=== PATIENT | female | born 1955 | race Caucasian/White ===

== ENCOUNTER 2021-07-16 09:25 | Emergency (ER) | payer OTHER, SELFPAY ==
--- NOTE | ~2021-07-16 | XR_ITS ---
EXAMINATION: RIGHT HAND. CLINICAL INFORMATION: Fall. COMPARISON: None TECHNIQUE: 4 views. FINDINGS: There is transverse distal radial comminuted fracture with volar angulation and moderate wrist soft tissue swelling. There is a nondisplaced fracture distal ulna There is no fracture involving the carpal bones. Mild loss of PIP and DIP joints space all digits is noted from degenerative arthritis. There is no acute fracture or dislocation of the right hand. XR/XR hand wrist RT IMPRESSION: Distal radial comminuted fracture without displacement but mild volar angulation and moderate soft tissue swelling of the wrist. Nondisplaced fracture distal ulna. No other fracture seen. Degenerative arthritic changes PIP and DIP joints.
[2021-07-16 10:09] VITALS: BP 152/76; PULSE 77; RESP 18; TEMP 36.8; O2SAT 96; BMI 27.4
--- NOTE | 2021-07-16 13:21 | ED_ITS ---
HPI - Fall General Chief Complaint: Fall Stated Complaint: fall on ice broken wrist Time Seen by Provider: 07/16/21 13:21 Source: patient Mode of arrival: ambulatory Limitations: no limitations History of Present Illness HPI Narrative: This is very pleasant 66 years old female presented to the emergency room after a fall in the ice she is complaining of left wrist pain no other injury denies any neck pain headache chest wall pain complaint: fall Onset (ago): day(s) (1) Fall from: standing Place fall occurred: street Loss of consciousness: none Symptoms prior to fall: none Context: tripped/slipped Quality: dull Related Data Allergies Allergy/AdvReac Type Severity Reaction Status Date / Time No Known Allergies Allergy Verified 07/16/21 10:07 Review of Systems Review of Systems: Yes all other systems are reviewed and are negative ENT: Reports system reviewed and no additional complaints, except as documented and Denies neck pain Cardiovascular: Cardiovascular: Reports no additional cardiovascular complaints Musculoskeletal: Musculoskeletal: Denies muscle weakness, Denies neck pain, Denies numbness and Denies tingling Neurologic: Denies numbness and Denies tingling PMFSH Past Medical History PMFSH Narrative: denies Social History Social History Advance Directives: No Advance Directives Information Provided: No Physical Exam Vital Signs: Vital Signs: Last Vital Signs Temp 98.3 F 07/16/21 10:09 Pulse 77 07/16/21 10:09 Resp 18 07/16/21 10:09 BP 152/76 H 07/16/21 10:09 Pulse Ox 96 07/16/21 10:09 BMI result Body Mass Index 27.4 Const: General: cooperative Limitations: no limitations HENMT: Head: Yes normal to inspection Face and sinus: Yes normal facial exam Mouth: Normal oral and palatal mucosa present Neck: Neck: Yes normal visual inspection and Yes full ROM Thyroid: Thyroid normal Chest: Chest palpation & inspection: normal inspection of the chest Resp: Effort & Inspection: normal respiratory effort Auscultation: clear to auscultation bilaterally Cardio: Jugular venous distension: no JVD Rate: regular rate Rhythm: regular rhythm GI: Inspection: Yes normal to inspection Palpation (GI): Soft to palpation, not firm, nontender and no guarding Skin: General skin exam: no rashes or lesions noted Extrem: Other: tenderness swelling left wrist Left upper extremity: wrist (swelling/tenderness) Course Course Course Narrative: Case was discussed with orthopedic surgeon Dr. Bernstein, will place OCL splint he will see the patient in the office for follow-up Procedures Orthopedic Splinting/Casting Splint rt wrist/forearm: Side: right Upper Extremity Injury Location: wrist Upper Extremity Immobilizer: volar splint Additional Comments: OCL splint applied circulation OK after splint MDM - Fall Imaging Data rt wrisyt: Radiologist's impression: None? TECHNIQUE: 4 views.? FINDINGS: There is transverse distal radial comminuted fracture with volar angulation and moderate wrist soft tissue swelling. There is a nondisplaced fracture distal ulna There is no fracture involving the carpal bones. Mild loss of PIP and DIP joints space all digits is noted from degenerative arthritis. There is no acute fracture or dislocation of the right hand.? XR/XR hand wrist RT IMPRESSION: Distal radial comminuted fracture without displacement but mild volar angulation and moderate soft tissue swelling of the wrist. Nondisplaced fracture distal ulna. ? No other fracture seen. ? Degenerative arthritic changes PIP and DIP joints. Dictated By: Gurvinder Chi MD Signed By: <Electronically signed by Gurvinder Chi MD in OV> 07/16/21 1019 Discharge Plan Discharge Clinical Impression: Fracture of wrist Patient Disposition: Home, Self-Care Instructions: Wrist Fracture in Adults (ED) Additional Instructions: Please follow-up with the orthopedist surgeon Dr Bernstein for definitive janessa tment, Call his office today make a follow-up appointment Referrals: Tuan Bernstein MD [Physician] - 2 days Interventions: ED Discharge Assessment Last Done: 07/16/21 13:59 Discharge Date/Time: 07/16/21 14:00
== END 2021-07-16 14:00 | disposition home or self-care (01) ==
PROVIDERS: Emergency Provider Emergency Medicine
DX: S52.501A Unspecified fracture of the lower end of right radius, initial encounter for closed fracture (principal); S52.601A Unspecified fracture of lower end of right ulna, initial encounter for closed fracture; W00.0XXA Fall on same level due to ice and snow, initial encounter; Y93.9 Activity, unspecified; Y92.410 Unspecified street and highway as the place of occurrence of the external cause; Y99.9 Unspecified external cause status
CPT/HCPCS: 29125; 73110; 73130; 99282; 99284

== ENCOUNTER → 2021-07-17 12:08 | Outpatient (BNVA) | payer OTHER, SELFPAY | PROVIDERS: Visit Provider Physician Assistant ==

== ENCOUNTER 2021-07-21 11:03 | Day surgery (SDC) | payer OTHER, SELFPAY ==
[2021-07-21] VITALS (10 sets, daily range): BP systolic 116–154; BP diastolic 46–76; PULSE 74–89; RESP 14–20; TEMP 36.9–37.4; O2SAT 93–98; BMI 26.6
--- NOTE | ~2021-07-21 | FL_ITS ---
EXAMINATION: XR FLUOROSCOPY WITH IMAGES CLINICAL INFORMATION: Fracture distal radius COMPARISON: Radiographs right hand and wrist 07/16/2021 TECHNIQUE: Fluoroscopy performed by Dr. Deisy Washington. Fluoroscopy time: 37 seconds DAP: [id number] [id number] Images: 2 FINDINGS: Distal radial fracture is reduced with volar side plate and screws. Hardware intact. Fracture fragments are in near-anatomic alignment. Ulnar variance is neutral. No dislocation. FL/FL guidance in OR IMPRESSION: Status post reduction distal radial fracture. Hardware intact.
--- NOTE | 2021-07-21 11:14 | W.PM.OPN ---
Operative Note Operative Note Date of Service: 07/21/21 Narrative: Operative Note Narrative: Preop diagnosis: 1. Right Distal radius fracture Postop diagnosis: Same Procedure: 1. Right Distal radius fracture open reduction internal fixation. extra-articular Surgeon: Deisy Washington MD Anesthesia: Mac plus regional block Findings: distal radius fracture Implants: A 3 hole Accu Med volar locking plate, with 4x 2.3 mm locking pegs/screws, and 3 3.5 mm cortical screws Tourniquet time: 51 minutes EBL: 5.0 ml Specimen: None Drains: None Complications: None Disposition: Brought to the recovery room in stable condition Plan: Follow-up in 10-14 days for wound check, suture removal and postop radiographs The patient will be placed in a volar wrist splint. Encouraged no lifting of anything heavier than a cell phone. Please encourage active and passive range of motion of the digits. Follow-up at 4-5 weeks postop for repeat radiographs. Indications: The patient is a 66 year old woman with right distal radius fracture . The risks and benefits of operative treatment, including but not limited to risk of damage to blood vessels, nerves, tendons, infection, recurrence, persistent pain or numbness, incomplete resolution of preoperative symptoms, or need for further surgery were discussed with the patient and they wished to proceed with surgery. Procedure: Once consent was obtained patient was brought back to the operating suite and placed in the operating table in a supine position. A regional block was performed by the anesthesia team. Perioperative antibiotics and anesthesia was administered by the anesthesia team. A tourniquet was applied to the proximal aspect of the right upper extremity and the limb was prepped and draped in a standard surgical fashion. The limb was elevated exsanguinated with Esmarch bandage and the tourniquet inflated to 250 mm of mercury for a total tourniquet time of 51 minutes. The FluoroScan was used throughout the case to assess our reduction, and facilitate implant placement. A gentle closed reduction was 1st performed on the patient's right distal radius fracture. Was assessed radiographically before proceeding with the reduction internal fixation. I then made an 8 cm longitudinal incision over the distal aspect of the flexor carpi radialis tendon. The incision was made through the skin to the subcutaneous tissue using a 15. Blade. Then carefully dissected down to flexor carpi radialis tendon she tenotomy scissors. The FCR tendon sheath was then incised longitudinally using tenotomy scissors under direct visualization. The FCR tendon was then retracted ulnarly. I then made a longitudinal incision in the volar forearm fascia through the floor of FCR tendon sheath using tenotomy scissors under direct visualization. I identified the interval between the radial artery and the flexor tendons. This interval was developed further with my index finger, releasing some of the muscular fibers of the flexor pollicis longus. A dull weatlander retractor was then placed. I then created an ulnarly based flap of the pronator quadratus by releasing the radial and distal edges using a 15. Blade. A Geronimo elevator was used to elevate the pronator quadratus from the volar surface of the distal radius. This then revealed to us our distal radius fracture. An open reduction was then performed on our distal radius fracture. I then placed a short standard 3 hole Accu Med volar locking plate on the volar surface of the distal radius. I placed a single K-wire through the distal aspect of the plate and into the distal radius. This was assessed using fluoroscopic images. I was satisfied with the placement of our plate. I then placed 4x 2.3 mm locking screws/pegs in the distal aspect of the plate and distal radius by 1st drilling bicortically with a 1.8 mm drill bit, measuring with a depth gauge, and placing the appropriate length locking screws/pegs. The placement of our plate and screws was then assessed again using fluoroscopic images. The once satisfied with the placement of the volar locking plate and screws on the distal aspect of the distal radius, the plate was then reduced to the shaft of the radius. I then placed 3 3.5 mm cortical screws to the proximal aspect of the plate and into the shaft of the radius. This was done by 1st drilling bicortically with a 2.8 mm drill bit, measuring with a depth gauge, and placing the appropriate length screw. Final radiographs were then obtained. The DRUJ was assessed and found to be stable on exam. I was satisfied with our reduction and placement of all implants. At this point the wound was irrigated with normal saline. The pronator quadratus was reduced back over the volar locking plate using some 3-0 Vicryl suture material. The tourniquet was then deflated and hemostasis was obtained with a brief period of local pressure and bipolar monopolar electrocautery. The subcutaneous layer was then reapproximated using some 4-0 Vicryl suture, and the skin edges were reapproximated using some 5 0 Prolene suture. The wound was then infiltrated with some 1% lidocaine with epinephrine postop pain control. A sterile dressing and a short dorsal splint allowing for active flexion and extension of the digits was applied. The patient appears to have tolerated the procedure well and with no complications. All digits were well vascularized conclusion of the case.
--- NOTE | 2021-07-21 12:10 | HO.ANESPROP2 ---
HPI - Anesthesia Eval Consult details Narrative: 66 F for right radius fracture PMFSH Active Problems Active Problems: All Active Problems (Updated 07/21/21 @ 11:13 by Anitha Christiansen RN) Fracture of distal end of right radius (Acute) Fracture of right ulnar styloid (Acute) Past Medical History Medical History (Updated 07/21/21 @ 11:13 by Anitha Christiansen RN) Asthma High cholesterol Functional capacity: independent ambulation Family History Family history of problems with anesthesia: No Surgical History Surgical History (Updated 07/21/21 @ 11:13 by Anitha Christiansen RN) Hx of tubal ligation History of Problems with Anesthesia: No Social History Social History (Updated 07/17/21 @ 12:27 by MIRANDA Morgan) Patient Tobacco Use Status: Never used Tobacco Current occupational status: retired 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 Allergies Allergy/AdvReac Type Severity Reaction Status Date / Time No Known Allergies Allergy Verified 07/21/21 11:13 Home Medications Medication Instructions Recorded Confirmed Last Taken Type albuterol sulfate 90 mcg/actuation 2 puff INHALATION Q4-6H PRN 07/21/21 07/21/21 Unknown History aerosol inhaler (ProAir HFA) omega-3 fatty acids 500 mg capsule 500 mg PO DAILY 07/21/21 07/21/21 Unknown History Exam Exam Date and Time: July 21, 2021 1210 Height,Weight and Vital Signs: Height 5 ft 4 in Weight 70.307 kg Last Vital Signs Temp 99.1 F 07/21/21 11:36 Pulse 80 07/21/21 11:36 Resp 16 07/21/21 11:36 BP 141/76 H 07/21/21 11:36 Pulse Ox 94 07/21/21 11:36 Airway Mallampati Class: II TM Dist: >3cm Neck ROM: Full Loose/Missing/Broken Teeth: Yes (Caps ) Heart: rrr Lungs: bl breath sounds Assessment and Plan Final Anesthetic Review Family History of Problems with Anesthesia: No History of Problems with Anesthesia: No NPO: Yes ASA Class: II Final Preanesthetic Review: Meds/Allgs Chart Reviewed, Consent Obtained/Reviewed and Anes Risks/Benef Reviewed Patient Risk: Intermediate Procedure Risk: Intermediate Anesthetic Plan Anesthetic Plan: GA, Regional Block and Agree w/ Assess. and Plan Disposition: Standard PACU
== END 2021-07-21 16:44 | disposition home or self-care (01) ==
PROVIDERS: Visit Provider Orthopaedic Surgery
PROC: (CPT 25607; principal; 2021-07-21 12:50)
DX: S52.551A Other extraarticular fracture of lower end of right radius, initial encounter for closed fracture (principal); W00.0XXA Fall on same level due to ice and snow, initial encounter; Y93.9 Activity, unspecified; Y92.9 Unspecified place or not applicable; Y99.8 Other external cause status; J45.909 Unspecified asthma, uncomplicated; E78.00 Pure hypercholesterolemia, unspecified
CPT/HCPCS: 25607; C1713; C1769; J0690; J1100; J2250; J2405; J3010

== ENCOUNTER 2021-08-05 11:51 | Outpatient (REF) | payer OTHER, SELFPAY ==
--- NOTE | ~2021-08-05 | XR_ITS ---
EXAMINATION: XR WRIST, RIGHT CLINICAL INFORMATION: Pain. COMPARISON: 07/16/2021 TECHNIQUE: PA, lateral, and oblique views of the right wrist. FINDINGS: Plate and screws bridge fracture of the distal radius. Good visual result. Fracture lines are still visible. Findings suggest healing in the region of the ulnar styloid fracture. No change in bony position. XR/XR wrist RT min 3V IMPRESSION: Hardware in place and healing fractures. No acute finding.
== END 2021-08-05 11:52 | disposition home or self-care (01) ==
LOC: HO.HOSX 11:51
PROVIDERS: Visit Provider Orthopaedic Surgery
DX: S52.501D Unspecified fracture of the lower end of right radius, subsequent encounter for closed fracture with routine healing (principal); S52.611D Displaced fracture of right ulna styloid process, subsequent encounter for closed fracture with routine healing
CPT/HCPCS: 73110

== ENCOUNTER 2021-08-19 08:58 | Outpatient (REF) | payer OTHER, SELFPAY ==
--- NOTE | ~2021-08-19 | XR_ITS ---
EXAMINATION: XR WRIST, RIGHT CLINICAL INFORMATION: Right wrist pain. COMPARISON: 08/05/2021 TECHNIQUE: PA, lateral, and oblique views of the right wrist. FINDINGS: Volar plate and screw fixation construct at the radius is unchanged in alignment. Distal radial fracture appears near-anatomic in alignment and is more indistinct as compared to prior, suggesting partial healing. Soft tissues are swollen. No new fractures. Bones are osteopenic. XR/XR wrist RT min 3V IMPRESSION: Unchanged alignment of the distal radial fracture with early changes of healing.
== END 2021-08-19 08:59 | disposition home or self-care (01) ==
LOC: HO.HOSX 08:58
PROVIDERS: Visit Provider Orthopaedic Surgery
DX: S52.501D Unspecified fracture of the lower end of right radius, subsequent encounter for closed fracture with routine healing (principal); S52.611D Displaced fracture of right ulna styloid process, subsequent encounter for closed fracture with routine healing; M25.641 Stiffness of right hand, not elsewhere classified; M25.631 Stiffness of right wrist, not elsewhere classified
CPT/HCPCS: 73110

== ENCOUNTER 2021-09-16 08:45 | Outpatient (REF) | payer OTHER, SELFPAY ==
--- NOTE | ~2021-09-16 | XR_ITS ---
EXAMINATION: XR WRIST, RIGHT CLINICAL INFORMATION: Pain. COMPARISON: Prior radiographs, most recently 08/19/2021. TECHNIQUE: PA, lateral, and oblique views of the right wrist. FINDINGS: There is bony demineralization. Bony alignment is normal. There is a neutral ulnar variance. An orthopedic plate and screws are again seen, applied to the distal right radius. No fracture or dislocation is seen. There is no hardware failure or loosening. Soft tissue swelling is significantly diminished in the interim, and there is no soft tissue gas or foreign body. XR/XR wrist RT min 3V IMPRESSION: There is well-maintained alignment status-post distal right radial ORIF. No residual fracture line is seen. There is no hardware failure or loosening.
== END 2021-09-16 08:46 | disposition home or self-care (01) ==
LOC: HO.HOSX 08:45
PROVIDERS: Visit Provider Orthopaedic Surgery
DX: M25.631 Stiffness of right wrist, not elsewhere classified (principal); M25.641 Stiffness of right hand, not elsewhere classified; S52.501D Unspecified fracture of the lower end of right radius, subsequent encounter for closed fracture with routine healing; S52.611D Displaced fracture of right ulna styloid process, subsequent encounter for closed fracture with routine healing
CPT/HCPCS: 73110

== ENCOUNTER → 2021-09-30 12:13 | Outpatient (BNVA) | payer OTHER, SELFPAY | PROVIDERS: Visit Provider Orthopaedic Surgery | DX: S52.611D Displaced fracture of right ulna styloid process, subsequent encounter for closed fracture with routine healing (principal); S52.501D Unspecified fracture of the lower end of right radius, subsequent encounter for closed fracture with routine healing; M25.631 Stiffness of right wrist, not elsewhere classified; M25.641 Stiffness of right hand, not elsewhere classified | CPT/HCPCS: 99212 ==

== ENCOUNTER → 2021-10-21 10:48 | Outpatient (BNVA) | payer OTHER, SELFPAY | PROVIDERS: Visit Provider Orthopaedic Surgery | DX: Z13.89 Encounter for screening for other disorder (principal) ==

== ENCOUNTER 2021-12-04 11:00 | Outpatient (RCR) | payer OTHER, SELFPAY ==
--- NOTE | 2021-08-13 13:15 | MHC.OT.OEV ---
[address] [phone] F: [phone] Occupational Therapy Evaluation Diagnosis: FX OF LOWER END OF RT RADIUS Date of Onset: 07/16/21 Date of Surgery: 07/21/21 Attending Provider: Deisy Washington Prescribed Treatment: EVGERRI AND MARII MIRANDA Follow Up Appointment: 08/19/21 History of Current Condition: TAKING OUT THE TRASH AND FELL ON THE ICE. REPORTS HURTING BACK AND WRIST DURING THE FALL. XRAY REVEALED Distal radial comminuted fracture without displacement but mild volar angulation and moderate soft tissue swelling of the wrist. Nondisplaced fracture distal ulna. No other fracture seen. Degenerative arthritic changes PIP and DIP joints. UNDERWENT R ORIF WITH DR WASHINGTON ON 07/21/21. PLACED IN PREFAB WRIST SPLINT ON 08/05/21. 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 Sleep: MILD DIFFICULTIES WITH FALLING ASLEEP AND GETTING COMFORTABLE. Driving: NOT CURRENTLY DRIVING DUE TO RECENT INJURY Vision: WEARS GLASSES Pain Assessment Pain Score: 5-9/10 Pain Scale Used: Numeric (0 - 10) Pain Location and Description: R RADIAL WRIST AND THUMB ACHY 5/10 AT REST 8-9/10 WITH USE Aggravating Factors: REPORTS OCCASIONAL DISCOMFORT WITH SPLINT, GENERAL USE Alleviating Factors: USING ICE, TAKING IBUPROPHEN, HEAT FROM SHOWER Skin and Soft Tissue Assessment Skin and Soft Tissue: Swelling Wound Comments: STERISTRIP INTACT TO R VOLAR WRIST, EDEMA TO DIGITS, DORSAL HAND AND WRIST Sensory Assessment Temperature: Light Touch: Right Impaired Proprioception: Vibration: Comments: DIMINISHED LIGHT TOUCH TO DIGITS ON RIGHT HAND PER SEMMES SKYE Edema Assessment Upper Extremity: Right Impaired Lower Extremity: Comments: CIRCUMFERENCE OF MCPs D2-D5: RIGHT 19.6 CM, LEFT 18.0 CM CIRCUMFERENCE OF WRIST, DISTAL TO US: RIGHT 17.5 CM, LEFT 16.0 CM Dexterity Assessment Dexterity: Right Impaired Comments: FUNCTIONAL DEXTERITY TEST: L 32 SECONDS; R UNABLE TO COMPLETE (ASSUME >55 SECONDS AND NONFUNCTIONAL RATING) RECEIVING ASSIST FOR ADLs WITH BUTTONS AND ZIPPERS, FINE MOTOR TASKS DIFFICULT AROM(PROM) Strength Elbow Flexion: WFL Extension: WFL Pronation: R 88, L 88 Supination: R 30, L 75 Comments: Flexion: Extension: Pronation: Supination: Comments: Wrist Flexion: R 12, L 58 Extension: R 28, L 70 Ulnar Deviation: R15, L 45 Radial Deviation: R 5, L 25 Comments: Flexion: Extension: Ulnar Deviation: Radial Deviation: Comments: Thumb Thumb CMC Flexion: Thumb MCP Flexion: Thumb IP Flexion: Radial Abduction: Palmar Abduction: [place] (Kapandji 0-10): R 6/10, L 10/10 Comments: Digits Index MCP: PIP: DIP: Long MCP: PIP: DIP: Ring MCP: PIP: DIP: Small MCP: PIP: DIP: Comments: GROSSLY 3CM TIP TO DPC R HAND Gross Grasp: L 55 Lateral Pinch: L 15 Two-Point Pinch: L 8 Three-Jaw [place]: L 10 Comments: R HAND TESTING DEFERRED Patient Education Primary Language: Palestinian Wildlife Protector Required: No Current Knowledge: Understands information with skills for self-management Teaching Method: Audio/Video Demonstration Handouts Phone Call Verbal Education Needs Identified on Evaluation: ADL's Disease Information Equipment Use Exercise Pain Safety How did patient/family demonstrate learning? Patient demonstrates Patient verbalizes Needs reinforcement Barriers to Learning: None Readiness for Learning: Accepting Who was educated? Patient Comments: Plan of Care Assessment: MS HOLLOWAY PRESENTS 3 WEEKS S/P ORIF FOR R DRF TO DOMINANT R WRIST, WHERE SHE FELL ON THE ICE. SHE IS NOW IN A PREFAB WRIST SPLINT WITH STERI STRIPS INTACT TO VOLAR WRIST. EDEMA IS PRESENT IN HER HAND AND DIGITS. SHE IS CURRENTLY HAVING DIFFICULTIES WITH MOST ADLs AND IADLs. A 64% LIMITATION IS REPORTED PER THE QUICK DASH ASSESSMENT. ONGOING SKILLED OT IS WARRANTED TO ADDRESS ROM, EDEMA MANAGEMENT, ADLs/IADLs TRAINING, DEXTERITY, SCAR MOBILIZATION AND IMPROVE QOL. STG Duration: 4 WEEKS Short Term Goals: IND HEP IND JOINT PROTECTION AND ACTIVITY MODIFICATION IND EDEMA MANAGEMENT AND SCAR MOBILIZATION R WRIST 40/35 R TIP TO PROXIMAL PALMAR CREASE REPORT <3/10 PAIN AT REST IND ADL CLOSURE BOARD AND FINE MOTOR TASKS R SUPINATION >50 LTG Duration: 8 WEEKS Alf Goals: R GRASP >45 POUNDS QUICK DASH <45% R WRIST 55/55 R SUPINATION 80, PRONATION 90 DEGREES Frequency and Duration: The patient will be seen 2X/WEEK FOR 8 WEEKS Treatment Plan: Therapeutic Exercise Therapeutic Activity Home Exercise Program Splinting Neuro Re-ed Patient Education Desensitization/Sensory Re-ed Edema Control ADL Training Ultrasound NMES Iontophoresis Paraffin Fluidotherapy MHP Cold Packs Joint Mobilization Soft Tissue Mobilization Kinesiotaping Other (see comments) Electronically Signed By: ESTELA BRASHER OTR/L Reviewed/agree with student documentation: N/A Therapist: Please sign and return to therapist, Thank you for your referral.
--- NOTE | 2021-09-29 14:45 | MHC.OT.OP ---
[address] [phone] F: [phone] Occupational Therapy Progress Note Diagnosis: FX OF LOWER END OF RT RADIUS Date of Surgery: 07/21/21 Date of Evaluation: 08/13/21 Treatments to Date: 18 Cancellations to Date: 1 No Shows to Date: 0 Subjective: IT'S ABOUT A 6/10 RE: PASSIVE STRETCH BY THERAPIST Pain Score: 2 Pain Location: R RADIAL WRIST AND THUMB (4-6/10 WITH STRETCHING) Objective Measures: WRIST ROM PRE RX 42/38 POST RX 50/50 ABOUT 2 CM TIP TO PALM R GROSS GRASP 5 LBS Status: Progressing Assessment: MS HOLLOWAY IS 10 WEEKS POST OP. SHE CONTINUES TO REPORT DILIGENCE WITH HEP WITH FREQUENT ACTIVE AND PASSIVE STRETCHING THROUGHOUT THE DAY. SHE HAS MADE SLOW, STEADY GAINS WITH DIGIT AND WRIST ROM, WELL WITH EDEMA CONTROL IN HER DOMINANT R HAND AND WRIST. SHE HAS A SOFT END RANGE, YET GUARDS WITH PASSIVE STRETCHING AND LOW TOLERANCE TO PAIN. Pt IS PARTICIPATING IN FUNCTIONAL ACTIVITIES WITH MILD TO MODERATE DIFFICULTIES. ONGOING SKILLED OT IS WARRANTED TO ADDRESS ROM, STRENGTH, COORDINATION, IADLs, SCAR MOBILIZATION, Pt EDUCATION AND EDEMA MANAGEMENT. Short Term Goals: IND HEP IND JOINT PROTECTION AND ACTIVITY MODIFICATION IND EDEMA MANAGEMENT AND SCAR MOBILIZATION R WRIST 40/35 (MET) R TIP TO PROXIMAL PALMAR CREASE REPORT <3/10 PAIN AT REST (MET) IND ADL CLOSURE BOARD AND FINE MOTOR TASKS R SUPINATION >50 Tour Guide Goals: R GRASP >45 POUNDS QUICK DASH <45% R WRIST 55/55 R SUPINATION 80, PRONATION 90 Frequency and Duration: The patient will be seen 3X/WEEK FOR 6 WEEKS Treatment Plan: Therapeutic Exercise Therapeutic Activity Home Exercise Program Splinting Neuro Re-ed Patient Education Desensitization/Sensory Re-ed Edema Control ADL Training Ultrasound NMES Iontophoresis Paraffin Fluidotherapy MHP Cold Packs Joint Mobilization Soft Tissue Mobilization Kinesiotaping Electronically Signed By: ESTELA BRASHER OTR/L Reviewed/agree with student documentation: N/A Therapist:
--- NOTE | 2021-12-04 15:11 | MHC.OT.DC ---
[address] [phone] F: [phone] Occupational Therapy Discharge Note Provider: Deisy Washington Diagnosis: FX OF LOWER END OF RT RADIUS Date of Surgery: 07/21/21 Date of Evaluation: 08/13/21 Date of Discharge: 12/04/21 Treatments to Date: 33 Cancellations to Date: 3 No Shows to Date: 0 Discharge Status: Improved Function Independent with HEP Discharge Summary: MS HOLLOWAY HAS MET ALL OF HER STGs AND MOST OF HER LTGs. SHE HAS MADE GOOD GAINS THROUGHOUT HER COURSE OF OT, AND SUSPECT SHE WILL CONTINUE TO IMPROVE WITH DAILY PARTICIPATION IN A HOME BASED PROGRAM. RECOMMEND Pt SEEK OUT HIGHER LEVEL WAYS TO IMPROVE FLEXIBILITY AND STRENGTH ( IE: THROUGH [facility], CARDIO/STRENGTH BASED CLASSES). NO FURTHER OT SERVICES WARRANTED AT THIS TIME, D/C OT SERVICES. Electronically Signed By: ESTELA BRASHER OTR/L Reviewed/agree with student documentation: N/A Therapist: Please Sign and return to therapist, thank you for your referral.
== END 2021-12-04 15:15 | disposition home or self-care (01) ==
LOC: HO.OT 11:00
PROVIDERS: Visit Provider Orthopaedic Surgery
DX: S52.501D Unspecified fracture of the lower end of right radius, subsequent encounter for closed fracture with routine healing (principal); S52.611D Displaced fracture of right ulna styloid process, subsequent encounter for closed fracture with routine healing
CPT/HCPCS: 97035; 97110; 97112; 97140; 97166; 97530

== ENCOUNTER → 2021-12-16 10:38 | Outpatient (BNVA) | payer OTHER, SELFPAY | PROVIDERS: Visit Provider Orthopaedic Surgery | DX: M25.561 Pain in right knee (principal) ==

== ENCOUNTER 2025-01-10 13:24 | Emergency (ER) | payer MEDICARE, SELFPAY ==
--- NOTE | ~2025-01-10 | XR_ITS ---
EXAMINATION: XR FOREARM, RIGHT CLINICAL INFORMATION: fall, pain , remote fracture July 2021 COMPARISON: September 16, 2021 TECHNIQUE: AP and lateral views of the right forearm were obtained. FINDINGS: Volar plate plate and screws fix a remote fracture of the distal radius. Hardware is intact without loosening. Remote fracture has healed and remodeled. Transverse linear lucency across the radial head raises suspicion for fracture. XR/XR forearm RT 2V IMPRESSION: Suspected radial head fracture. ORIF a remote distal radial fracture. Electronically signed by: Gerber Chirinos MD 01/10/2025 02:11 PM EDT
--- NOTE | ~2025-01-10 | XR_ITS ---
EXAMINATION: XR CHEST CLINICAL INFORMATION: fall COMPARISON: None available. TECHNIQUE: Frontal view of the chest was obtained. FINDINGS: Heart size is within normal limits. Pulmonary vasculature is mildly prominent in the left mid and lower lung zone. No other abnormality. XR/XR chest 1V IMPRESSION: Unremarkable examination. Electronically signed by: Gerber Chirinos MD 01/10/2025 02:14 PM EDT RP
[2025-01-10 13:39] VITALS: BP 165/80; PULSE 78; RESP 16; TEMP 36.3; O2SAT 98; BMI 21.2
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
[2025-01-10 15:13] VITALS: BP 151/70; PULSE 71; RESP 14; TEMP 36.6; O2SAT 96
[2025-01-10 16:28] VITALS: BP 151/70; PULSE 71; RESP 14; TEMP 36.6; O2SAT 96
== END 2025-01-10 16:28 | disposition home or self-care (01) ==
LOC: HO.ED 15:52
PROVIDERS: Emergency Provider Emergency Medicine Emergency Medical Services; PCP Internal Medicine
DX: S52.121A Displaced fracture of head of right radius, initial encounter for closed fracture (principal); S01.81XA Laceration without foreign body of other part of head, initial encounter; V01.00XA Pedestrian on foot injured in collision with pedal cycle in nontraffic accident, initial encounter; M25.521 Pain in right elbow; R07.9 Chest pain, unspecified; Y93.01 Activity, walking, marching and hiking; Y92.838 Other recreation area as the place of occurrence of the external cause; Y99.8 Other external cause status
CPT/HCPCS: 12011; 71045; 73090; 99284; 99291

== ENCOUNTER → 2025-01-10 13:42 | Outpatient (BNV) | payer OTHER, SELFPAY | PROVIDERS: Visit Provider Radiology Diagnostic Radiology | DX: M79.631 Pain in right forearm (principal); R07.9 Chest pain, unspecified; W19.XXXA Unspecified fall, initial encounter | CPT/HCPCS: 71045; 73090 ==

== ENCOUNTER 2025-01-18 06:53 | Outpatient (REF) | payer MEDICARE, SELFPAY ==
--- NOTE | ~2025-01-18 | XR_ITS ---
EXAMINATION: XR ELBOW, RIGHT CLINICAL INFORMATION: M25.521 - Pain in right elbow COMPARISON: 01/10/2025 right forearm radiographs. TECHNIQUE: AP, lateral, and oblique views of the right elbow. FINDINGS: There is a joint effusion. There is a minimally displaced intra-articular radial head fracture. There are no additional fractures. There is no malalignment. Joint spaces are preserved. The epicondyles appear normal. No soft tissue abnormality. XR/XR elbow RT min 3V IMPRESSION: 1. Joint effusion. 2. Minimally displaced radial head fracture. Electronically signed by: Aroldo Yancey MD 01/18/2025 02:41 PM EDT
--- OUTSIDE RECORDS SUMMARY | 2025-01-22 06:55 | XMS_ITS | Data Portability ---
Author Organization 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 Plan of Treatment [...] Go To The Location Of Their Choice, [id number] 09/21/2024 06:07:48 noninv asive colore ctal cancer DNA + occult blood screen ing, QL, stool 2024 025 [facility]ard [facility] Only), [address], [address], [place], [address], 10/12/2024 12:33:35 hemogl obin A1C, finger stick 2023 024 [email or web address] In-Office Order, Internal Use Only DO Not Attach Compendium DO Not Attach Compendium, Do Not Delete/merge, [id number] 05/16/2024 13:47:17 lipid panel, serum 2023 024 HUNG [facility] (Centralized Electronic Ordering - All Locations), Patient Can Go To The Location Of Their Choice, [id number] 12/17/2023 06:12:14 microa lbumin /creat inine, mass ratio, urine 2023 024 HUNG [facility] (Centralized Electronic Ordering - All Locations), Patient Can Go To The Location Of Their Choice, [id number] 11/19/2023 14:06:49 hemogl obin A1C, finger stick 2023 024 HUNG In-Office Order, Internal Use Only DO Not Attach Compendium DO Not Attach Compendium, Do Not Delete/merge, [id number] 11/18/2023 09:16:29 lipid panel, serum 2023 024 HUNG [facility], [address], [address], [place], [address], 08/19/2023 19:47:19 CMP, serum or plasma 2023 024 HUNG [facility], [address], [address], [place], [address], 08/19/2023 19:47:17 CBC w/ auto diff 2023 024 LACHINE [facility], [address], [address], 08/19/2023 16:29:35 Referral None record ed. Procedures None record ed. Surgeries None record ed. Imaging bone densit y 2024 025 [email or web address] In-Office Order, Internal Use Only DO Not Attach Compendium DO Not Attach Compendium, Do Not Delete/merge, [id number] 12/19/2024 10:05:53 electr ocardi ogram 2023 024 [email or web address] In-Office Order, Internal Use Only DO Not Attach Compendium DO Not Attach Compendium, Do Not Delete/merge, [id number] 11/18/2023 09:38:35 Medication Orders ProAir HFA 90 mcg/ac tuatio n aeroso l inhale r 2023 024 LACHINE [id number], [address] [place], [address], 11/18/2023 09:06:51 Patient TargetsNo targets recorded. Patient Instructions Encounter Date Encounter Id Patient Instructions Last Modified By Organization Details Last Modified Time 08/19/2023 [id number] high cholesterol: care instructions [email or web address] Not available 08/19/2023 09:32:28 11/18/2023 [id number] elevated blood pressure: care instructions [email or web address] Not available 11/18/2023 09:11:47 learning about type 2 diabetes acennerazzo Not available 11/18/2023 09:02:30 type 2 diabetes: care instructions acennerazzo Not available 11/18/2023 09:02:30 12/16/2023 [id number] learning about type 2 diabetes acennerazzo Not [...] medication. [email or web address] Not available 12/16/2023 09:28:11 05/16/2024 [id number] learning about type 2 diabetes acennerazzo Not [...] of medication. Not available 05/16/2024 13:25:38 09/20/2024 [id number] learning about type 2 diabetes acennerazzo Not [...] Go To The Location Of Their Choice, [id number] 08/19/2023 16:29:35 08/19/19 24 08/19/2023 COMPL ETE BLOOD COUNT RBC 5.13 M/mm3 (4.20- 5.40) Not Available [facility] (Centralized Electronic Ordering - All Locations) Patient Can Go To The Location Of Their Choice, [id number] 08/19/2023 16:29:35 08/19/19 24 08/19/2023 COMPL ETE [...] of Clini john and Appli ed Resea [facility] and Educa tion Volum e 43, Suppl ement 1 Not Available [facility] (Centralized Electronic Ordering - All Locations) Patient Can Go To The Location Of Their Choice, [address] 08/20/2023 22:46:14 11/18/19 24 11/19/2023 ALBUM IN/CR EAT RATIO , RANDO M UR creatinine, urine 146.4 mg/dL not estab. Not Available [facility] ([facility]) [address] [facility], [place], [address], 11/19/2023 14:06:49 11/18/19 24 11/19/2023 ALBUM IN/CR EAT RATIO , RANDO M UR albumin, urine 17.8 ug/mL not estab. Not Available [facility] ([facility]) [address] [facility], [place], [address], 11/19/2023 14:06:49 11/18/19 24 11/19/2023 ALBUM IN/CR EAT RATIO , RANDO M UR alb/creat ratio 12 mg/g_ creat 0-29 Phyllis l: 0 - 29 Moder ately incre ased: 30 - 300 Sever lashay incre ased: >300 Not Available [facility] ([facility]) [address] [facility], [place], [address], 11/19/2023 14:06:49 11/18/19 24 11/18/2023 hemog lobin A1C, finge rstic k A1C 5.6 % 4-6 normal Not Available In-Office Order Internal Use Only DO Not Attach Compendium DO Not Attach Compendium, Do Not Delete/merge, [id number] 11/18/2023 09:09:59 12/16/1912/16/2023 LIPID PANEL cholesterol, total 193 mg/dL 100-19 9 Not Available [facility] ([facility]) [address] [place], [address], 12/17/2023 06:12:14 12/16/19 24 12/16/2023 LIPID PANEL triglyceride s 169 mg/dL 0-149 above high normal Not Available [facility] ([facility]) [address] [place], [address], 12/17/2023 06:12:14 12/16/19 24 12/16/2023 LIPID PANEL HDL cholesterol 40 mg/dL >39 Not Available [facility] ([facility]) [address] [place], [address], 12/17/2023 06:12:14 12/16/19 24 12/16/2023 LIPID PANEL VLDL cholesterol john 30 mg/dL 5-40 Not Available [facility] ([facility]) [address] [place], [address], 12/17/2023 06:12:14 12/16/19 24 12/16/2023 LIPID PANEL LDL chol calc ([facility]) 123 mg/dL 0-99 above high normal Not Available [facility] ([facility]) [address] [place], [address], 12/17/2023 06:12:14 12/16/19 24 12/16/2023 LIPID PANEL comment: ORCHARDIST Not Available [facility] ([facility]) [address] [place], [address], 12/17/2023 06:12:14 05/16/20 24 05/16/2024 hemog lobin A1C, finge rstic k A1C 5.1 % 4-6 normal Not Available In-Office Order Internal Use Only DO Not Attach Compendium DO Not Attach Compendium, Do Not Delete/merge, [id number] 05/16/2024 13:25:44 09/21/1909/20/2024 CBC WITH DIFFE MIGUEL AL/PL ATELE T WBC 11.5 x10e3 /uL 3.4-10 .8 above high normal Not Available [facility] ([facility]) [address] [place], [address], 09/21/2024 06:07:48 09/21/19 25 09/20/2024 CBC WITH DIFFE RENTI AL/PL ATELE T RBC 5.19 x10e6 /uL 3.77-5 .28 normal Not Available [facility] ([facility]) [address] [place], [address], 09/21/2024 06:07:48 09/21/19 25 09/20/2024 CBC WITH DIFFE RENTI AL/PL ATELE T hemoglobin 14.9 g/dL 11.1-1 5.9 normal Not Available [facility] ([facility]) [address] [place], [address], 09/21/2024 06:07:48 09/21/19 25 09/20/2024 CBC WITH DIFFE RENTI AL/PL ATELE T hematocrit 45.8 % 34.0-4 6.6 normal Not Available [facility] ([facility]) [address] [place], [address], 09/21/2024 06:07:48 09/21/19 25 09/20/2024 CBC WITH DIFFE RENTI AL/PL ATELE T MCV 88 fL 79-97 normal Not Available [facility] ([facility]) [address] [place], [address], 09/21/2024 06:07:48 09/21/19 25 09/20/2024 CBC WITH DIFFE RENTI AL/PL ATELE T MCH 28.7 pg 26.6-3 3.0 normal Not Available [facility] ([facility]) [address] [place], [address], 09/21/2024 06:07:48 09/21/19 25 09/20/2024 CBC WITH DIFFE RENTI AL/PL ATELE T MCHC 32.5 g/dL 31.5-3 5.7 normal Not Available [facility] ([facility]) [address] [place], [address], 09/21/2024 06:07:48 09/21/19 25 09/20/2024 CBC WITH DIFFE RENTI AL/PL ATELE T RDW 11.2 % 11.7-1 5.4 below low normal Not Available [facility] ([facility]) [address] [facility], [place], [address], 09/21/2024 06:07:48 09/21/19 25 09/20/2024 CBC WITH DIFFE RENTI AL/PL ATELE T platelets 267 x10e3 /uL 150-45 0 normal Not Available [facility] ([facility]) [address] [facility], [place], [address], 09/21/2024 06:07:48 09/21/19 25 09/20/2024 CBC WITH DIFFE RENTI AL/PL ATELE T neutrophils 77 % not estab. normal Not Available [facility] ([facility]) [address] [facility], [place], [address], 09/21/2024 06:07:48 09/21/19 25 09/20/2024 CBC WITH DIFFE RENTI AL/PL ATELE T lymphs 16 % not estab. normal Not Available [facility] ([facility]) [address] [facility], [place], [address], 09/21/2024 06:07:48 09/21/19 25 09/20/2024 CBC WITH DIFFE RENTI AL/PL ATELE T monocytes 6 % not estab. normal Not Available [facility] ([facility]) [address] [facility], [place], [address], 09/21/2024 06:07:48 09/21/19 25 09/20/2024 CBC WITH DIFFE RENTI AL/PL ATELE T eos 1 % not estab. normal Not Available [facility] ([facility]) [address] [place], [address], 09/21/2024 06:07:48 09/21/19 25 09/20/2024 CBC WITH DIFFE RENTI AL/PL ATELE T basos 0 % not estab. normal Not Available [facility] ([facility]) [address] [place], [address], 09/21/2024 06:07:48 09/21/19 25 09/20/2024 CBC WITH DIFFE RENTI AL/PL ATELE T immature cells ORCHARDIST Not Available [facility] ([facility]) [address] [place], [address], 09/21/2024 06:07:48 09/21/19 25 09/20/2024 CBC WITH DIFFE RENTI AL/PL ATELE T neutrophils (absolute) 8.7 x10e3 /uL 1.4-7. 0 above high normal Not Available [facility] ([facility]) [address] [place], [address], 09/21/2024 06:07:48 09/21/19 25 09/20/2024 CBC WITH DIFFE RENTI AL/PL ATELE T lymphs (absolute) 1.9 x10e3 /uL 0.7-3. 1 normal Not Available [facility] ([facility]) [address] [place], [address], 09/21/2024 06:07:48 09/21/19 25 09/20/2024 CBC WITH DIFFE RENTI AL/PL ATELE T monocytes(ab solute) 0.7 x10e3 /uL 0.1-0. 9 normal Not Available [facility] ([facility]) [address] [place], [address], 09/21/2024 06:07:48 09/21/19 25 09/20/2024 CBC WITH DIFFE RENTI AL/PL ATELE T eos (absolute) 0.2 x10e3 /uL 0.0-0. 4 normal Not Available [facility] ([facility]) [address] [place], [address], 09/21/2024 06:07:48 09/21/19 25 09/20/2024 CBC WITH DIFFE RENTI AL/PL ATELE T baso (absolute) 0.0 x10e3 /uL 0.0-0. 2 normal Not Available [facility] ([facility]) [address] [facility], [place], [address], 09/21/2024 06:07:48 09/21/19 25 09/20/2024 CBC WITH DIFFE RENTI AL/PL ATELE T immature granulocytes 0 % not estab. Not Available [facility] ([facility]) [address] [facility], [place], [address], 09/21/2024 06:07:48 09/21/19 25 09/20/2024 CBC WITH DIFFE RENTI AL/PL ATELE T immature grans (abs) 0.0 x10e3 /uL 0.0-0. 1 Not Available [facility] ([facility]) [address] [facility], [place], [address], 09/21/2024 06:07:48 09/21/19 25 09/20/2024 CBC WITH DIFFE RENTI AL/PL ATELE T NRBC ORCHARDIST Not Available [facility] ([facility]) [address] [facility], [place], [address], 09/21/2024 06:07:48 09/21/19 25 09/20/2024 CBC WITH DIFFE RENTI AL/PL ATELE T hematology comments: ORCHARDIST Not Available [facility] ([facility]) [address] [facility], [place], [address], 09/21/2024 06:07:48 09/21/19 25 09/21/2024 COMP. METAB OLIC PANEL (14) glucose 121 mg/dL 70-99 above high normal Not Available [facility] ([facility]) [address] [facility], [place], [address], 09/21/2024 06:07:49 09/21/19 25 09/21/2024 COMP. METAB OLIC PANEL (14) BUN 19 mg/dL 8-27 normal Not Available [facility] ([facility]) [address] [facility], [place], [address], 09/21/2024 06:07:49 09/21/19 25 09/21/2024 COMP. METAB OLIC PANEL (14) creatinine 0.92 mg/dL 0.57-1 .00 normal Not Available [facility] ([facility]) [address] [facility], [place], [address], 09/21/2024 06:07:49 09/21/19 25 09/21/2024 COMP. METAB OLIC PANEL (14) eGFR 67 mL/mi n/1.7 3 >59 normal Not Available [facility] ([facility]) [address] [facility], [place], [address], 09/21/2024 06:07:49 09/21/19 25 09/21/2024 COMP. METAB OLIC PANEL (14) BUN/creatini ne ratio 21 12-28 normal Not Available [facility] ([facility]) [address] [facility], [place], [address], 09/21/2024 06:07:49 09/21/19 25 09/21/2024 COMP. METAB OLIC PANEL (14) sodium 140 mmol/ L 134-14 4 normal Not Available [facility] ([facility]) [address] [place], [address], 09/21/2024 06:07:49 09/21/19 25 09/21/2024 COMP. METAB OLIC PANEL (14) potassium 4.8 mmol/ L 3.5-5. 2 normal Not Available [facility] ([facility]) [address] [facility], [place], [address], 09/21/2024 06:07:49 09/21/19 25 09/21/2024 COMP. METAB OLIC PANEL (14) chloride 101 mmol/ L 96-106 normal Not Available [facility] ([facility]) [address] [facility] [place], [address], 09/21/2024 06:07:49 09/21/19 25 09/21/2024 COMP. METAB OLIC PANEL (14) carbon dioxide, total 23 mmol/ L 20-29 normal Not Available [facility] ([facility]) [address] [facility] [place], [address], 09/21/2024 06:07:49 09/21/19 25 09/21/2024 COMP. METAB OLIC PANEL (14) calcium 10.0 mg/dL 8.7-10 .3 normal Not Available [facility] ([facility]) [address] [facility] [place], [address], 09/21/2024 06:07:49 09/21/19 25 09/21/2024 COMP. METAB OLIC PANEL (14) protein, total 7.1 g/dL 6.0-8. 5 normal Not Available [facility] ([facility]) [address] [place], [address], 09/21/2024 06:07:49 09/21/19 25 09/21/2024 COMP. METAB OLIC PANEL (14) albumin 4.7 g/dL 3.9-4. 9 normal Not Available [facility] ([facility]) [address] [place], [address], 09/21/2024 06:07:49 09/21/19 25 09/21/2024 COMP. METAB OLIC PANEL (14) globulin, total 2.4 g/dL 1.5-4. 5 Not Available [facility] ([facility]) [address] [place], [address], 09/21/2024 06:07:49 09/21/19 25 09/21/2024 COMP. METAB OLIC PANEL (14) bilirubin, total 0.6 mg/dL 0.0-1. 2 normal Not Available [facility] ([facility]) [address] [facility] [place], [address], 09/21/2024 06:07:49 09/21/19 25 09/21/2024 COMP. METAB OLIC PANEL (14) alkaline phosphatase 115 IU/L 44-121 normal Not Available [facility] ([facility]) [address] [facility] [place], [address], 09/21/2024 06:07:49 09/21/19 25 09/21/2024 COMP. METAB OLIC PANEL (14) AST (SGOT) 24 IU/L 0-40 normal Not Available [facility] ([facility]) [address] [facility] [place], [address], 09/21/2024 06:07:49 09/21/19 25 09/21/2024 COMP. METAB OLIC PANEL (14) ALT (SGPT) 20 IU/L 0-32 normal Not Available [facility] ([facility]) [address] [facility] [place], [address], 09/21/2024 06:07:49 09/21/19 25 09/21/2024 LIPID PANEL cholesterol, total 221 mg/dL 100-19 9 above high normal Not Available [facility] ([facility]) [address] [place], [address], 09/21/2024 06:07:49 09/21/19 25 09/21/2024 LIPID PANEL triglyceride s 208 mg/dL 0-149 above high normal Not Available [facility] ([facility]) [address] [facility] [place], [address], 09/21/2024 06:07:49 09/21/19 25 09/21/2024 LIPID PANEL HDL cholesterol 46 mg/dL >39 normal Not Available [facility] ([facility]) [address] [place], [address], 09/21/2024 06:07:49 09/21/19 25 09/21/2024 LIPID PANEL VLDL cholesterol john 37 mg/dL 5-40 Not Available [facility] ([facility]) [address] [place], [address], 09/21/2024 06:07:49 09/21/19 25 09/21/2024 LIPID PANEL LDL chol calc ([facility]) 138 mg/dL 0-99 above high normal Not Available [facility] ([facility]) [address] [place], [address], 09/21/2024 06:07:49 09/21/1909/21/2024 LIPID PANEL LDL calc comment: ORCHARDIST Not Available [facility] ([facility]) [address] [place], [address], 09/21/2024 06:07:49 09/21/1909/21/2024 HEMOG LOBIN A1C hemoglobin A1C 5.2 % 4.8-5. 6 normal Predi abete s: 5.7 - 6.4 Diabe alyssia: >6.4 Glyce kelsey contr ol for adult s with diabe alyssia: <7.0 Not Available [facility] ([facility]) [address] [place], [address], 09/21/2024 06:07:50 10/10/1910/09/2024 COLOG UARD cologuard result [...] of 10,00 0 indiv [place]ual [place] at [place] risk for color ectal cance r [...] asymp tomat ic indiv idual s at [place] risk for color ectal cance r. [...] Mary DUCKWORTH, Color ectal Cance r Scree vicky: Recom menda tions for Physi cians and Patie nts from the [place]. Multi -Soci ety Task Force on Color ectal Cance r Scree vicky , Am Melania Gastr oente rolog y 2017; 112:1 016-1 030. TEST DESCR IPTIO N: [place] site algor ithmi c tommie sis of [...] years or older , who are at the medical center for color ectal cance r (CRC) . Colog uard has been appro celine for use by the [place]. FDA. The perfo rmanc e of Colog uard was estab lishe d in a cross secti onal study of the medical center adult s aged 50-84 . [...] study of 0 indiv idual s at [facility] risk for color ectal cance r who [...] at www.c wendyogu zane.c om. Not Available [facility] (Cologuard Orders Only) [address], [place], [address], 10/12/2024 12:33:35 10/19/19 25 10/19/2024 ALBUM IN/CR EAT RATIO , RANDO M UR creatinine, urine 65.7 mg/dL not estab. normal Not Available [facility] ([facility]) [address] [facility], [place], [address], 10/19/2024 20:08:08 10/19/19 25 10/19/2024 ALBUM IN/CR EAT RATIO , RANDO M UR albumin, urine 11.9 ug/mL not estab. Not Available [facility] ([facility]) [address] [facility], [place], [address], 10/19/2024 20:08:08 10/19/19 25 10/19/2024 ALBUM IN/CR EAT RATIO , RANDO M UR alb/creat ratio 18 mg/g_ creat 0-29 Phyllis l: 0 - 29 Moder ately incre ased: 30 - 300 Sever lashay incre ased: >300 Not Available [facility] ([facility]) [address] [facility], [place], [address], 10/19/2024 20:08:08 11/18/19 24 11/18/2023 elect joaquina shaikhgr am No observ ation record ed. [email or web address] In-Office Order Internal Use Only DO Not Attach Compendium DO Not Attach Compendium, Do Not Delete/merge, [id number] 11/18/2023 10:49:49 11/18/19 24 elect joaquina diogr am No observ ation record ed. [email or web address] In-Office Order Internal Use Only DO Not Attach Compendium DO Not Attach Compendium, Do Not Delete/merge, [id number] 11/22/2023 10:55:45 02/11/2002/11/2024 MAMMO , scree vicky, [...] Lay letter mailed to reji reyes WSN: [id number] Orderi ng Physic annette: Emiliana Leon Dictat ed By: Rishi Guzman MD Dictat ed Date/T sushil: 10:10 am Review ed By: Rishi Guzman MD Signed By: Rishi Guzman MD Signed Date/T sushil: 10:10 am Transc ribed By: MARSHA Transc riptio n Date/T sushil: 9:56 am Birads : Reji reyes Class: Outpat ient [email or web address] [facility] (Outpt Imaging) [address] [place], [address], 02/11/2024 10:19:24 12/03/19 25 11/23/2024 DEXA, axial skele ton Name:José Miguel reyes ID: [id number] Age:69 years Sex:Fe male Ethnic ity:Wh [...] be consid ered in two years. WSN: [id number] Orderi ng Physic annette: Emiliana Leon Dictat ed By: Geraldine Myrick ra, MD Dictat ed Date/T sushil: 8:40 am Review ed By: Geraldine Myrick ra, MD Signed By: Geraldine Myrick ra, MD Signed Date/T sushil: 8:40 am Transc ribed By: MARSHA Transc ribed Date/T sushil: 8:39 am Patien t Class: Outpat [facility] (Outpt Imaging) [address] [place] [address], [address], 12/02/2024 11:19:26 Result Notes Documentation Provider Name [...] (Negative) Lay letter mailed to patient WSN: [id number] Ordering Physician: Emiliana Fortune Dictated By: Henna Guzman MD Dictated Date/Time: 02/11/24 10:10 am Reviewed By: Henna Guzman MD Signed By: Henna Guzman MD Signed Date/Time: 02/11/24 10:10 am Transcribed By: MARSHA Type Casting Machine Operator Date/Time: 02/11/24 9:56 am Birads: Patient Class: Outpatient Fawn Alvarado [facility] 02/11/2024 10:19:24 Dexa, Axial Skeleton : Name:LIZBET [...] should be considered in two years. WSN: [id number] Ordering Physician: Emiliana Fortune Dictated By: Geraldine Preciado MD Dictated Date/Time: 12/02/24 8:40 am Reviewed By: Geraldine Preciado MD Signed By: Geraldine Preciado MD Signed Date/Time: 12/02/24 8:40 am Transcribed By: MARSHA Transcribed Date/Time: 12/02/24 8:39 am Patient Class: Outpatient Emiliana Fortune MD [address], [phone], [facility] 12/02/2024 09:02:06 Problems Name Problem SNOMED Code Status Onset Date Resolution Date Notes Provider Name and Address Organization Details Recorded Time Patient status finding [id number] Completed 201202/15/2014 RECORDED 06/05/20 13 9:17AM BY MICHELLE COSBY ON/ADDEN DUM Not Available [facility] 4 12:22:26 Asthma [id number] Completed 200902/15/2014 RECORDED 04/24/20 10 9:51AM BY BRAD MURPHY MA, ANNOTATI ON/ADDEN DUM Not Available [facility] 4 12:22:26 Screenin g for malignan t neoplasm of breast Completed 201102/15/2014 RECORDED 02/04/20 12 8:41AM BY ANALY WILDER MA, MICHELLE ON/ADDEN DUM Not Available [facility] 4 12:22:27 Abnormal feces [id number] Completed 201305/10/2014 RECORDED 12/09/19 14 4:07PM BY STEVEN HINES I, NURSE VISIT Emiliana Forutne MD [address] [facility] [address], [place], [phone] , [facility] [place] 4 10:41:46 Screenin g for malignan t neoplasm of cervix Completed 201102/15/2014 RECORDED 02/04/20 12 8:41AM BY ANALY WILDER MA, ANNOTATI ON/ADDEN DUM Not Available [facility] 4 12:22:27 Screenin g for malignan t neoplasm of colon Completed 201102/15/2014 RECORDED 02/04/20 12 8:41AM BY ANALY WILDER MA, ANNOTATI ON/ADDEN DUM Not Available [facility] 4 12:22:27 Malaise and fatigue [id number] Completed 201102/15/2014 RECORDED 02/04/20 12 8:41AM BY ANALY WILDER MA, ANNOTATI ON/ADDEN DUM Not Available [facility] 4 12:22:27 Influenz a vaccine needed [id number] Completed 201202/15/2014 RESOLVED DATE: 06/05/20 13; RECORDED 06/05/20 13 9:17AM BY STEVEN HINES I, ANNOTATI ON/ADDEN DUM Not Available [facility] 4 12:22:27 Adult health examinat ion Completed 201202/15/2014 RECORDED 06/05/20 13 9:17AM BY STEVEN HINES I, ANNOTATI ON/ADDEN DUM Not Available [facility] 4 12:22:27 Headache [id number] Completed 201102/15/2014 IMPRESSI ON: PT WITH SUSPECTE [...] WINKLER MA, ANNOTATI ON/ADDEN DUM Not Available [facility] 4 12:22:27 Pure hypercho lesterol emia [id number] Completed 201202/15/2014 RECORDED 06/05/20 13 9:16AM BY STEVEN HINES I, ANABELATI ON/ADDEN DUM Not Available [facility] 4 12:22:27 Influenz a with respirat ory manifest ation other than pneumoni a Completed 200902/15/2014 RECORDED 04/17/20 10 5:32PM BY WILLIAM LLAMAS, ANABELATI ON/ADDEN DUM Not Available [facility] 4 12:22:27 Localize d superfic ial swelling of skin [id number] Completed 201102/15/2014 RECORDED 02/04/20 12 8:41AM BY ANALY WILDER MA, ANNOTATI ON/ADDEN DUM Not Available [facility] 4 12:22:27 Administ ration of bacteria l and viral vaccine Completed 200802/15/2014 RECORDED 04/23/20 09 9:56AM BY CHUY MURPHY, OFFICE VISIT Not Available [facility] [place] 4 12:22:27 Examinat ion for suspecte d mental disorder Completed 201102/15/2014 RECORDED 05/05/20 12 8:38AM BY FOSTER WINKLER MA, ANNOTATI ON/ADDEN DUM Not Available [facility] 4 12:22:27 Chronic sinusiti s 68778135 Completed 201102/15/2014 RECORDED 02/04/20 12 8:41AM BY ANALY WILDER MA, ANNOTATI ON/ADDEN DUM Not Available [facility] 4 12:22:27 Sprains and strains of joints [...] WILLIAM LLAMAS, ANNOTATI ON/ADDEN DUM Not Available [facility] 4 12:22:27 Pain in limb 26661880 Completed 201102/15/2014 IMPRESSI ON: FOLLOWIN G TRAUMA LAST NIGHT. XRAY TO R/O FX, ADVISED RE SX CARE WITH WILTON TAPING, REST, ELEVATIO N, USE OF PRN NSAID. WILL CONTACT PT WITH RESULT WHEN AVAIL.; RECORDED 02/04/20 12 8:41AM BY ANALY WILDER MA, ANNOTATI ON/ADDEN DUM Not Available [facility] 4 12:22:28 Patient status finding [id number] Completed 201202/16/2014 RECORDED 06/05/20 13 9:17AM BY STEVEN HINES I, ANNOTATI ON/ADDEN DUM Not Available [facility] 4 03:37:07 Asthma 888240838 Completed 200902/16/2014 RECORDED 04/24/20 10 9:51AM BY BRAD MURPHY MA, ANNOTATI ON/ADDEN DUM Not Available [facility] 4 03:37:07 Screenin g for malignan t neoplasm of breast Completed 201102/16/2014 RECORDED 02/04/20 12 8:41AM BY ANALY WILDER MA, ANNOTATI ON/ADDEN DUM Not Available [facility] 4 03:37:07 Screenin g for malignan t neoplasm of cervix Completed 201102/16/2014 RECORDED 02/04/20 12 8:41AM BY ANALY WILDER MA, ANNOTATI ON/ADDEN DUM [facility] Available [facility] 4 03:37:07 Screenin g for malignan t neoplasm of colon Completed 201102/16/2014 RECORDED 02/04/20 12 8:41AM BY ANALY WILDER MA, ANNOTATI ON/ADDEN DUM Not Available [facility] 4 03:37:07 Malaise and fatigue 984328012 Completed 201102/16/2014 RECORDED 02/04/20 12 8:41AM BY ANALY WILDER MA, ANABELATI ON/ADDEN DUM Not Available [facility] 4 03:37:07 Influenz a vaccine needed [id number] 06 Completed 201202/16/2014 RESOLVED DATE: 06/05/20 13; RECORDED 06/05/20 13 9:17AM BY ANABEL COSBYATI ON/ADDEN DUM Not Available [facility] 4 03:37:07 Adult health examinat ion Completed 201202/16/2014 RECORDED 06/05/20 13 9:17AM BY STEVEN HINES I ANNOTATI ON/ADDEN DUM Not Available [facility] 4 03:37:07 Headache 79485674 Completed 201102/16/2014 IMPRESSI ON: PT WITH SUSPECTE [...] WINKLER MA, ANNOTATI ON/ADDEN DUM Not Available [facility] 4 03:37:07 Pure hypercho lesterol emia 548733435 Completed 201202/16/2014 RECORDED 06/05/20 13 9:16AM BY ANABEL COSBYATI ON/ADDEN DUM Not Available [facility] 4 03:37:07 Influenz a with respirat ory manifest ation other than pneumoni a Completed 200902/16/2014 RECORDED 04/17/20 10 5:32PM BY ANABEL SEGOVIAATI ON/ADDEN DUM Not Available [facility] 4 03:37:07 Localize d superfic ial swelling of skin 069574173 Completed 201102/16/2014 RECORDED 02/04/20 12 8:41AM BY ANALY WILDER MA, ANNOTATI ON/ADDEN DUM Not Available [facility] 4 03:37:07 Administ ration of bacteria l and viral vaccine Completed 200802/16/2014 RECORDED 04/23/20 09 9:56AM BY CHUY MURPHY, OFFICE VISIT Not Available [facility] 4 03:37:07 Examinat ion for suspecte d mental disorder Completed 201102/16/2014 RECORDED 05/05/20 12 8:38AM BY FOSTER WINKLER MA, ANABELATI ON/ADDEN DUM Not Available [facility] 4 03:37:07 Chronic sinusiti s 04558453 Completed 201102/16/2014 RECORDED 02/04/20 12 8:41AM BY NAALY WILDER MA, ANABELATI ON/ADDEN DUM Not Available [facility] 4 03:37:07 Sprains and strains of joints and adjacent muscles Completed 200902/16/2014 IMPRESSI ON: NORMAL EXAM, NO SIGNS OF INFX OR PALPABLE MASSES. SUSPECT MUSCULAR . RECOMMEN DED REST, INTERMIT TENT HEAT AND USE OF NSAID FOR PAIN. TO CALL OFFICE IF CONTINUE S TO WORSEN OR PERSISTS WITH THE ABOVE TXS.; RECORDED 04/17/20 10 5:32PM BY MICHELLE SEGOVIA ON/ADDEN DUM Not Available [facility] 4 03:37:07 Pain in limb 11760718 Completed 201102/16/2014 IMPRESSI ON: FOLLOWIN G TRAUMA LAST NIGHT. XRAY TO R/O FX, ADVISED RE SX CARE WITH WILTON TAPING, REST, ELEVATIO N, USE OF PRN NSAID. WILL CONTACT PT WITH RESULT WHEN AVAIL.; RECORDED 02/04/20 12 8:41AM BY NAALY WILDER MA, ANABELATI ON/ADDEN DUM Not Available [facility] 4 03:37:07 Body mass index 25-29 - overweig 328224702 Completed 05/16/2024 Removal Reason: lost weight; now w/a normal BMI. Emiliana Fortune MD [address], [place], [address] , [facility] 4 13:58:41 Patient status finding [id number] Completed 201201/23/2014 RECORDED 06/05/20 13 9:17AM BY STEVEN HINES I, ANNOTATI ON/ADDEN DUM Not Available [facility] 4 13:57:28 Intrinsi c asthma 335389133 Active 2012 RECORDED 05/08/20 13 10:38AM BY EMILIANA IQBAL MD, OFFICE VISIT Not Available [facility] 3 11:09:36 Asthma 167076864 Completed 200901/23/2014 RECORDED 04/24/20 10 9:51AM BY BRAD MURPHY MA, ANNOTATI ON/ADDEN DUM Not Available [facility] 4 13:57:28 Screenin g for malignan t neoplasm of breast Completed 201101/23/2014 RECORDED 02/04/20 12 8:41AM BY ANALY WILDER MA, ANNOTATI ON/ADDEN DUM Not Available [facility] 4 13:57:28 Screenin g for malignan t neoplasm of breast Completed 201305/10/2014 RECORDED 10/21/19 14 9:36AM BY LORE VALDEZ, HISTORIC AL SUMMARY Emiliana Fortune MD [address] [address], [place], [address] , [facility] [place] 4 10:41:46 Screenin g for malignan t neoplasm of cervix Completed 201101/23/2014 RECORDED 02/04/20 12 8:41AM BY ANALY WILDER MA, ANNOTATI ON/ADDEN DUM Not Available [facility] 4 13:57:28 Screenin g for malignan t neoplasm of colon Completed 201101/23/2014 RECORDED 02/04/20 12 8:41AM BY ANALY WILDER MA, ANNOTATI ON/ADDEN DUM Not Available [facility] 4 13:57:28 Malaise and fatigue 440469465 Completed 201101/23/2014 RECORDED 02/04/20 12 8:41AM BY ANALY WILDER MA, ANNOTATI ON/ADDEN DUM Not Available [facility] 4 13:57:28 Influenz a vaccine needed [id number] 06 Completed 201201/23/2014 RESOLVED DATE: 06/05/20 13; RECORDED 06/05/20 13 9:17AM BY ANABEL COSBYATI ON/ADDEN DUM Not Available [facility] 4 13:57:28 Adult health examinat ion Completed 201201/23/2014 RECORDED 06/05/20 13 9:17AM BY ANABEL COSBYATI ON/ADDEN DUM Not Available [facility] 4 13:57:28 Headache 14220908 Completed 201101/23/2014 IMPRESSI ON: PT WITH SUSPECTE [...] [facility] 4 13:57:29 Pure hypercho lesterol emia 199569961 Completed 201201/23/2014 RECORDED 06/05/20 13 9:16AM BY ANABEL CSOBYATI ON/ADDEN DUM Not Available [facility] 4 13:57:29 Influenz a with respirat ory manifest ation other than pneumoni a Completed 200901/23/2014 RECORDED 04/17/20 10 5:32PM BY WILLIAM LLAMAS, ANABELATI ON/ADDEN DUM Not Available [facility] 4 13:57:29 Shoulder joint pain 358726523 Active 2012 RECORDED 06/05/20 13 9:28AM BY EMILIANA IQBAL MD, OFFICE VISIT. Improved with PT. Not Available [facility] 3 11:09:36 Localize d superfic ial swelling of skin 814641455 Completed 201101/23/2014 RECORDED 02/04/20 12 8:41AM BY ANALY WILDER MA, ANABELATI ON/ADDEN DUM Not Available [facility] 4 13:57:29 Administ ration of bacteria l and viral vaccine Completed 200801/23/2014 RECORDED 04/23/20 09 9:56AM BY CHUY MURPHY, OFFICE VISIT Not Available [facility] 4 13:57:29 Examinat ion for suspecte d mental disorder Completed 201101/23/2014 RECORDED 05/05/20 12 8:38AM BY FOSTER WINKLER MA, ANABELATI ON/ADDEN DUM Not Available [facility] 4 13:57:29 Chronic sinusiti s 31807038 Completed 201101/23/2014 RECORDED 02/04/20 12 8:41AM BY ANALY WILDER MA, ANABELATI ON/ADDEN DUM Not Available [facility] 4 13:57:29 Sprains and strains of joints and adjacent muscles Completed 200901/23/2014 IMPRESSI ON: NORMAL EXAM, NO SIGNS OF INFX OR PALPABLE MASSES. SUSPECT MUSCULAR . RECOMMEN DED REST, INTERMIT TENT HEAT AND USE OF NSAID FOR PAIN. TO CALL OFFICE IF CONTINUE S TO WORSEN OR PERSISTS WITH THE ABOVE TXS.; RECORDED 04/17/20 10 5:32PM BY MICHELLE SEGOVIA ON/ADDEN DUM Not Available [facility] 4 13:57:29 Pain in limb 21810789 Completed 201101/23/2014 IMPRESSI ON: FOLLOWIN G TRAUMA LAST NIGHT. XRAY TO R/O FX, ADVISED RE SX CARE WITH WILTON TAPING, REST, ELEVATIO N, USE OF PRN NSAID. WILL CONTACT PT WITH RESULT WHEN AVAIL.; RECORDED 02/04/20 12 8:41AM BY ANALY WILDER MA, ANNOTATI ON/ADDEN DUM Not Available [facility] 4 13:57:29 Hyperlip idemia 90239012 Active 2016 Not Available [facility] 3 11:09:36 Pain of right shoulder joint 81180184395 635817 Active 2018 Not Available [facility] 3 11:09:36 History of SARS-CoV -2 41830702613 3086610 Active 2021 MIld symptoms Not Available [facility] 3 11:09:36 Closed fracture of right wrist 04759163562 310365 Active 2021 Not Available [facility] 3 11:09:36 Osteopen ia 025030851 Active 2022 Bone density done 11/05/22 Not Available [facility] 3 11:09:36 Contact dermatit is caused by urushiol from [facility] olena 219244954 Active 2022 Not Available [facility] 3 11:09:36 Type 2 diabetes mellitus 86551567 Active 2023 Emiliana Fortune MD [address], [place], [address] , [facility] [place] 4 10:13:45 Notes:10/20/2013: PAP SMEAR - STATUS IS INACTIVE [facility] UP TO DATE; RECORDED 04/24/2010 9:51AM BY BRAD STONE MA, ANNOTATION/ADDENDUM Problem Notes None recorded. Procedures Surgical History Date Name Laterality Status Provider Name and Address Organization Details Recorded Time 10/10/19 25 Cologuard completed Emiliana Fortune MD [address], [place], [address], [facility] [place] 10/22/2024 08:06:29 02/11/20 24 Most Recent Mammogram completed Fawn Alvarado [facility] 02/11/2024 10:19:20 02/08/20 24 diabetic retinopathy screening completed Fawn Alvarado [facility] 02/16/2024 08:22:14 02/10/20 23 Ultrasound breast limited completed Fawn Alvarado [facility] 02/09/2023 15:44:18 02/03/20 23 Mammogram both breasts completed Kati Monterouyen [facility] 02/02/2023 15:42:54 07/21/19 22 Orthopedic Surgery completed Kira Ball MA [facility] 01/06/2023 12:57:53 05/12/20 21 Date of Last Pap Smear completed Bailey Valdez [facility] 06/23/2021 13:39:52 12/08/19 19 Diabetic Foot Exam (Monofilament) completed Steven Guajardo [facility] 12/07/2018 10:24:22 03/03/19 90 Tubal Ligation completed Steven Guajardo [facility] 06/13/2019 09:24:40 03/12/19 86 Dilation and Curettage completed Advance Amandamichela [facility] 06/13/2019 09:24:40 Imaging Results None recorded. Procedure Notes None recorded. Medical Equipment None Reported. Allergies Allergen ID Allergen Name Allergen Category Reaction Reaction Severity Criticality Documentation Date Start Date Code Code System Note Provider Name and Address Organization Details Recorded Time 23201 cat dander environme nt Not available Not available Not available 05/28/2016 04038 UNK Emiliana davenport MD [address] [address], [place], [address] [place] [address] 6 11:25:58 42048 house dust allergeni c extract environme nt,medica tion Not available Not available Not available 05/16/2024 83444 9 RxNorm WILLIAM Andersen, [facility] 4 13:30:52 Medications Name Sig Start Date [...] completed RECORDED 06/10/20 09 8:30AM BY EMILIANA IQBLA MD, MEDICATI ON AUTO-BRUNO CTIVATIO N; Not [...] Updated DateTime 4 161.29 cm 28.1 kg/m2 50048.3 7 g 73 /min 93 % 93 % 98.5 [degF] 153/89 mm[Hg] Litzy Moran MA [facility] 4 09:03:54 Date Recorded Body height Body mass index (BMI) Body weight Heart rate Oxygen saturation Oxygen saturation in Arterial blood by Pulse oximetry Body temperature Systolic And Diastolic Provider Name and Address Organization Details Last Updated DateTime 5 161.29 cm 23.4 kg/m2 60260.3 8 g 82 /min 99 % 99 % 97.8 [degF] 112/76 mm[Hg] Litzy Moran MA [facility] 5 10:03:32 Date Recorded Body height Body mass index (BMI) Body weight Heart rate Oxygen saturation Oxygen saturation in Arterial blood by Pulse oximetry Body temperature Systolic And Diastolic Provider Name and Address Organization Details Last Updated DateTime 4 161.29 cm 25.6 kg/m2 78364.0 8 g 64 /min 96 % 96 % 98 [degF] 138/71 mm[Hg] Yennifer Chamorro LPN [facility] 4 08:57:33 Date Recorded Body height Body mass index (BMI) Body weight Heart rate Oxygen saturation Oxygen saturation in Arterial blood by Pulse oximetry Body temperature Systolic And Diastolic Provider Name and Address Organization Details Last Updated DateTime 4 161.29 cm 24.8 kg/m2 02896.1 2 g 73 /min 98 % 98 % 97.9 [degF] 121/75 mm[Hg] Rafaela mai MA [facility] 4 09:32:50 Date Recorded Body height Body mass index (BMI) Body weight Heart rate Oxygen saturation Oxygen saturation in Arterial blood by Pulse oximetry Body temperature Systolic And Diastolic Provider Name and Address Organization Details Last Updated DateTime 4 161.29 cm 23.2 kg/m2 13319.7 9 g 73 /min 98 % 98 % 98.2 [degF] 117/75 mm[Hg] Litzy Moran MA [facility] 4 13:30:32 Social History Question Answer Notes LastModified by Organizat ion Details LastModified Time Tobacco Smoking Status Never Smoker Not Available [facility] 05/14/2020 03:36:35 Do You Have An Advance Directive? No [email or web address] Information not available 08/19/2023 Animal Exposure? Yes [email or web address] Information not available 08/19/2023 Is Blood Transfusion Acceptable In An Emergency? Yes [id number] Information not available 05/14/2020 What Is Your Level Of Caffeine Consumption? Occasional [id number] Information not available 05/14/2020 How Much Tobacco Do You Chew? None [id number] Information not available 05/14/2020 What Type Of Diet Are You Following? REGULAR [id number] Information not available 05/14/2020 Which Illicit Or Recreational Drugs Have You Used? None [id number] Information not available 05/14/2020 Education 2 Year College [email or web address] Information not available 08/19/2023 Have There Been Any Changes To Your Family Or Social Situation? No [email or web address] Information not available 08/19/2023 Are There Any Guns Present In Your Home? No [email or web address] Information not available 08/19/2023 Legally Blind In One Or Both Eyes? No Information not available 08/19/2023 Live Alone Or With Others? With Others [email or web address] Information not available 08/19/2023 Do You Take [...] Or Greater Than 100 Degrees Fahrenheit? No Information not available 06/18/2020 Are You Or Anyone In Your Household A Health Care Provider Or Emergency Responder? No [email or web address] Information not available 06/18/2020 To The Best Of Your Knowledge Have You Been In Close Proximity To Any Individual Who Tested Positive For COVID-19? No [email or web address] Information not available 06/18/2020 Marital Status [email or web address] Informati on not available 08/19/2023 What Was The Date Of Your Most Recent Tobacco Screening? 09/20/2024 Information not available 09/20/2024 How Many Children Do You Have? 3 Sons; 3 Grandsons [email or web address] Information not available 09/20/2024 Do You Use Protection During Sex? No [id number] Information not available 05/14/2020 Difficulty Reading? No [email or web address] Information not available 08/19/2023 What Is Your Relationship Status? [email or web address] Information not available 08/19/2023 Do You Use Your Seat Belt Or Car Seat Routinely? Yes [email or web address] Information not available 06/25/2021 Seat Belts Used Routinely Yes [email or web address] Information not available 08/19/2023 Are You Sexually Active? Yes [id number] Information not available 05/14/2020 Smoke Alarm In Home Yes Information not available 08/19/2023 Do You Have Smoke And Carbon Monoxide Detectors In Your Home? Yes [email or web address] Information not available 06/25/2021 At What Age Did You Start Smoking Tobacco? 1 [id number] Information not available 05/14/2020 Are You Passively Exposed To Smoke? No [email or web address] Information not available 06/25/2021 How Much Tobacco Do You Smoke? No [id number] Information not available 05/14/2020 Do You Use Sunscreen Routinely? Yes [id number] Information not available 05/14/2020 How Many Years Have You Smoked Tobacco? 0 [id number] Information not available 05/14/2020 Do You Have Difficulty Walking Or Climbing Stairs? No [email or web address] Information not available 08/19/2023 Sex: Unknown Functional Status Question Answer Note LastModified by Organizat ion Details LastModified Time Do you use any illicit or recreational drugs? No [email or web address] Information not available 08/19/2023 What is your level of alcohol consumption? None [id number] Information not available 05/14/2020 Do you or have you ever used smokeless tobacco? Never used smokeless tobacco [id number] Information not available 05/14/2020 Are you currently employed? No [id number] Information not available 05/14/2020 Difficulty driving at night? No [email or web address] Information not available 08/19/2023 Are you able to care for yourself? 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 No [email or web address] Information not available 08/19/2023 Do you or have you ever used e-cigarettes or vape? Never used electronic cigarettes Information not available 08/19/2023 What is your exercise level? Occasional walking [id number] Information not available 05/14/2020 Mental Status Question Answer Note LastModified by Organization D etails LastModified Time Do you have difficulty concentrating, remembering or making decisions? No Information no t available 08/19/2023 Family History [...] Notes:1 younger brother Medical History Condition Response Other N Gout N Blood Diseases N Kidney Stones N Hyperthyroidism N Breast Cancer N Lung Disease N COPD N Depression N Hypothyroidism N Defects or Inherited Disease N Anesthesia Complications N Headaches/Migraines Y Varicose Veins N Anxiety Disorder N Obesity N Vision or Eye Problems N Arthritis N Head Injury/Concussion N Polyps N Infertility N Congenital Anomalies N Acid Reflux (GERD) N Cancer N Stroke N ADHD N Endometriosis N High Cholesterol N Liver Disease N Fibromyalgia N Kidney Disease N Heart Problems N Ear or Hearing Problems N Hospitalizations N Thyroid Problems N GI Problems N Acne N Skin Problems N Eating Disorder N Anemia N Constipation N Bladder Problems N Mental Illness N Ovarian Cancer N Diabetes N Blood Transfusions N Seizures/Epilepsy N Tuberculosis N AIDS/HIV N Congestive Heart Failure (CHF) N Eczema N Diverticulitis N Abuse/Domestic Violence N Allergies Y Asthma Y Reflux/GERD N Hepatitis N Pulmonary Embolism N Hypertension N Osteoporosis N Chicken Pox Y Autism Spectrum Disorder (ASD) N Gynecological History Statement/Question Response If Post [...] preservative 0 completed WILLIAM Andersen MA - [facility] 08/19/2023 09:04:07 Influenza, adjuvanted, quadrivalent, PF 1 completed Fawn Alvarado null, [facility] 04/27/2023 11:25:41 Influenza, split virus, trivalent, preservative 8 completed Fawn Alvarado null, [facility] 04/27/2023 11:25:42 Tdap 9 completed Fawn Alvarado null, [facility] 04/27/2023 11:25:42 Influenza, split virus, trivalent, preservative 9 completed Fawn Alvarado null, [facility] 04/27/2023 11:25:42 Influenza, split virus, trivalent, preservative 0 completed Fawn Alvarado null, [facility] 04/27/2023 11:25:42 Influenza, split virus, trivalent, preservative 1 completed Fawn Alvarado null, [facility] 04/27/2023 11:25:42 influenza, seasonal, intradermal, preservative free 2 completed Fawn Alvarado null, [facility] 04/27/2023 11:25:42 influenza, seasonal, intradermal, preservative free 3 completed Fawn Alvarado null, [facility] 04/27/2023 11:25:42 COVID-19, mRNA, LNP-S, PF, 30 mcg/0.3 mL dose 1 completed Fawn Alvarado null, [facility] 04/27/2023 11:25:42 Influenza, MDCK, quadrivalent, PF 0 completed Fawn Alvarado null, [facility] 04/27/2023 11:25:41 zoster recombinant 1 completed Fawn Alvarado null, [facility] 04/27/2023 11:25:41 COVID-19, mRNA, LNP-S, PF, 30 mcg/0.3 mL dose 1 completed Fawn Alvarado null, [facility] 04/27/2023 11:25:42 pneumococcal polysaccharide PPV23 1 completed Fawn Alvarado null, [facility] 04/27/2023 11:25:42 Influenza, split virus, quadrivalent, PF 7 completed Fawn Alvarado null, [facility] 04/27/2023 11:25:42 Influenza, split virus, trivalent, PF 4 completed Fawn Alvarado null, [facility] 04/27/2023 11:25:42 Tdap 9 completed Fawn Alvarado null, [facility] 04/27/2023 11:25:42 Pneumococcal conjugate PCV 13 0 completed Fawn Alvarado null, [facility] 04/27/2023 11:25:42 Influenza, split virus, quadrivalent, PF 5 completed Fawn Alvarado null, [facility] 04/27/2023 11:25:42 Influenza, high-dose, quadrivalent, PF 2 completed Fawnconrad Serratonett null, [facility] 04/27/2023 11:25:41 COVID-19, mRNA, LNP-S, bivalent, PF, 50 mcg/0.5 mL or 25mcg/0.25 mL dose 2 completed Fawn Alvarado null, [facility] 04/27/2023 11:25:42 Influenza, split virus, quadrivalent, PF 8 completed Fawn Alvarado null, [facility] 04/27/2023 11:25:42 zoster recombinant 2 completed Fawn Alvarado null, [facility] 04/27/2023 11:25:41 Influenza, split virus, quadrivalent, PF 9 completed Fawn Alvarado null, [facility] 04/27/2023 11:25:42 COVID-19, mRNA, LNP-S, PF, 100 mcg/0.5mL dose or 50 mcg/0.25mL dose 1 completed Fawn Alvarado null, [facility] 04/27/2023 11:25:41 COVID-19, mRNA, LNP-S, PF, 30 mcg/0.3 mL dose 1 completed Fawn Alvarado null, [facility] 04/27/2023 11:25:41 COVID-19, mRNA, LNP-S, PF, 50 mcg/0.5 mL 3 completed Fawn Alvarado null, [facility] 04/27/2023 11:25:42 influenza, unspecified formulation 3 completed Yennifer Caporale, [employer]RNAMENT [employer] null, [facility] 11/18/2023 08:57:56 Influenza, adjuvanted, quadrivalent, PF 3 completed Yennifer Caporale, [employer] ORNAMENT MAKER null, [facility] 11/18/2023 08:57:56 Influenza, split virus, quadrivalent, PF 6 completed Not Available [facility] 07/29/2019 02:22:07 Influenza, high-dose, trivalent, PF 4 completed Emiliana Fortune MD [address], [address], [facility] [place] 05/16/2024 16:44:01 Past Encounters Encounter ID Performer Location Encounter Start Date Encounter Closed Date Diagnosis/Indication Diagnosis SNOMED-CT Code Diagnosis ICD10 Code Diagnosis Note [id number] autoEComm erce [id number] [facility] [place] [address] 12/21/2007 00:00:00 [id number] autoEComm erce [address] [facility] [address] [place] [address] 04/23/2009 00:00:00 [id number] [employer] [address] [facility] [place] [address] 05/31/2009 00:00:00 [id number] [address] [address] [place] [address] 06/11/2009 00:00:00 [id number] [employer] [address] [address] [place] [address] 06/26/2009 00:00:00 [id number] [employer] [address] [facility] [address] [address] [place] [address] 04/24/2010 00:00:00 [id number] [employer] [address] [facility] [address] [place] [address] 03/05/2011 00:00:00 [id number] [employer] [address] [facility] [address] [place] [address] 04/27/2011 00:00:00 [id number] [employer] [address] [facility] [address] [place] [address] 06/24/2011 00:00:00 [id number] [employer] [address] [facility] [address] [place] [address] 02/04/2012 00:00:00 [id number] [employer] [address] [facility] [address] [place] [address] 05/05/2012 00:00:00 [id number] [employer] [address] [facility] [address] [place] [address] 05/08/2013 00:00:00 [id number] [employer] [address] [facility] [address] [place] [address] 06/05/2013 00:00:00 [id number] Emiliana Fortune MD Main Office [address] [facility] [address] [place], [place] [address] 05/10/2014 10:06:25 05/10/2014 11:07:20 Needs influenza immunization 129378701 Adult heal th examination 734964689 Body mass index 25-29 - overweight 012226267 Intrinsic asthma 076391458 [id number] Emiliana Fortune MD Main Office [address] [place] [address] 05/27/2015 10:55:56 05/27/2015 11:54:30 Adult health examination 619018934 Z00.00 She is UTD with mammogram and PAP smears. She refuses a colonoscop y but will do the stool cards. Shingles vaccine recommende d. Needs infl uenza immunization 004684893 Z23 Intrinsic asthma 8777518 08 J45.909 Varicella vaccination 68 819257 Z23 [id number] Emiliana Fortune MD Main Office [address] [address] [place] [address] 05/28/2016 10:47:08 05/28/2016 11:50:16 Adult health examination 621169842 Z00.00 She is UTD with mammogram and PAP smears. She refuses a colonoscop y but will do the stool cards. Shingles vaccine recommende d. Intrinsic asthma 8135920 08 J45.909 Usually set off by URI's. Needs infl uenza immunization 405981274 Z23 Varicella vaccination 68 344258 Z23 [id number] Emiliana Fortune MD Main Office [address] [address] [place] [address] 05/31/2017 12:52:06 05/31/2017 13:37:31 Adult health examination 062757222 Z00.00 We discussed a shingles shot and she will get this at the pharmacy. We also discussed colon cancer screening and she refuses a colonoscop y but will do the cologuard. Needs infl uenza immunization 666183586 Z23 Hyperlipidemia 45509304 E78.5 Screening for malignant neoplasm of colon 127789090 Z12.11 Z12.12 She refuses a colonoscop y. [id number] Emiliana Fortune MD Main Office [address] [address] [place] [address] 06/08/2018 09:28:27 06/08/2018 10:25:56 Adult health examination 064585171 Z00.00 We discussed a shingles shot and she will get this at the pharmacy. UTD with colon cancer screening. Had a negative cologuard and due again May 2020. Needs infl uenza immunization 737918859 Z23 Varicella vaccination 68 959592 Z23 Hyperglycemia 95277793 R 73.9 Type 2 jerry betes mellitus without complication 153910048 E11.9 A1C is 6.3. We discussed mgmt and will see her back in 6 months. Hypertriglyceridemia 302 955857 E78.1 Discussed ways to reduce this. We will recheck in 6 months and add meds at that time if it is still elevated. Plantar fasciitis 20280211 003 M72.2 left foot. [id number] Emiliana Fortune MD Main Office [address] [address] 12/07/2018 10:10:05 12/07/2018 10:52:32 Type 2 diabetes mellitus 38900733 E11.9 She has reduced her carb and sugared drink intake and her A1C has come down to normal. Hyperlipidemia 78620829 E78.5 [id number] Emiliana Fortune MD Main Office [address] [place] [address] 06/13/2019 09:15:54 06/13/2019 10:09:55 Adult health examination 865619132 Z00.00 We discussed a shingles shot and she will get this at the pharmacy. UTD with colon cancer screening. Had a negative cologuard and due again May 2021 Intrinsic asthma 6535448 08 J45.909 Usually set off by URI's. Administra tion of viral vaccine 19699518 Z23 Needs infl uenza immunization 991211929 Z23 Hyperlipidemia 63984240 E78.5 Varicella vaccination 68 472236 Z23 Pain of ri ght shoulder joint 4854602273 9310444 M25.511 H/o frozen shoulder. Gave handout with exercises to do at home and she will call for PT referral if it worsens. [id number] Emiliana Fortune MD Main Office [address] [address] 06/18/2020 09:33:07 06/18/2020 10:05:45 Adult health examination 646665973 Z00.00 We discussed a shingles shot and she will get this at the pharmacy. UTD with colon cancer screening. Had a negative cologuard and due again May 2021 Administra tion of pneumococcal vaccine 14215317 Z23 [id number] Emiliana Fortune MD Main Office [address] [facility] [address] [place] [place] [address] 06/25/2021 09:23:20 06/25/2021 10:35:04 Adult health examination 745253148 Z00.00 UTD with COVID and scheduled for her booster. Received one shingles vaccine and due for her second. Will give her second pneumonia vaccine. Had a negative cologuard in 2018 and due again now. Discussed cardiac risk factors. Administra tion of pneumococcal vaccine 24418372 Z23 Screening for malignant neoplasm of colon 939170252 Z12.11 Z12.12 Had a negative cologuard in 2018. Hyperglycemia 32334656 R 73.9 Hyperlipidemia 33177188 E78.5 Her 10-year risk is 7.6%. She will work on lifestyle changes. [id number] Emiliana Fortune MD Main Office [address] [facility] [address] [place] [place] [address] 06/30/2022 10:53:54 06/30/2022 11:48:09 Adult health examination 120769879 Z00.00 UTD with COVID including the bivalent booster. Also UTD with flu, pneumonia and shingles vaccines. Had a negative cologuard July 2021 and due again in 2024. Discussed cardiac risk factors. Bone density finding 385 702448 M85.89 She will schedule her own appointmen t. History of SARS-CoV-2 29 62789951 26805028 Z86.16 MIld symptoms Closed fra cture of right wrist 6863543091 3891283 S62.91XA Had surgery done by Dr Washington at . Hyperlipidemia 73306561 E78.5 Running high but chose to work on lifestyle factors. [id number] Rhonda Reed MD Main Office [address] [facility] [address] [place] [address] 01/06/2023 12:53:55 01/06/2023 13:34:32 Contact dermatitis caused by urushiol from [place] poison olena 404451723 L25.5 Contact dermatitis from Poison [place] in her garden. Begin Prednisone taper therapy. Rec that patient continue OTC cream and Benadryl. [id number] Emiliana Fortune MD Main Office [address] [address] [place] [address] 01/21/2023 13:55:35 01/21/2023 14:29:31 Contact dermatitis caused by urushiol from [place] poison o[place]a 335428482 L25.5 ? rebound as she denies re-exposur e. will re-start prednisone taper x 14 days, may continue hydrocorti sone or calamine, zyrtec as needed for itching. [id number] Emiliana Fortune MD Main Office [address] [address] [place] [address] 08/19/2023 08:58:29 08/19/2023 09:44:08 Adult health examination 649646305 Z00.00 UTD with COVID including the bivalent booster. Also UTD with flu, pneumonia and shingles vaccines. Had a negative cologuard July 2021 and due again in 2024. Discussed cardiac risk factors. Hyperlipidemia 57032284 E78.5 Running high in the past. Recheck fasting lipids. Elevated blood-pressure reading without diagnosis of hypertension 119454977 R03.0 She will follow her blood pressures at home and will return for a check in 3 months. Intrinsic asthma 8909535 08 J45.909 Usually set off by URI's. She has not had a problem for years. [id number] Emiliana Fortune MD Main Office [address] [address] [place] [address] 11/18/2023 08:47:59 11/18/2023 09:38:35 Type 2 diabetes mellitus 16837540 E11.9 She has reduced her carb and sugared drink intake and her A1C has come down to normal. Intrinsic asthma 3323829 08 J45.909 Usually set off by URI's. She has not had a problem for years. Elevated blood-pressure reading without diagnosis of hypertension 199541987 R03.0 Blood pressure in the pre-hypert ensive range. Discussed management of cardiovasc ular risks and strategies to control BP. Left bundl e branch block 85860238 I44.7 She will call if she develops symptoms. [id number] Emiliana Fortune MD Main Office [address] [address] [place] [address] 12/16/2023 09:23:06 12/16/2023 10:00:15 Type 2 diabetes mellitus 19555720 E11.9 She has reduced her carb and sugared drink intake and her A1C has come down to normal. Will follow twice yearly for now. Hyperlipidemia 05979141 E78.5 Running high in the past. Recheck fasting lipids. [id number] Emiliana Fortune MD Main Office [address] [address] [place] [address] 05/16/2024 13:23:58 05/16/2024 13:54:25 Type 2 diabetes mellitus 52981697 E11.9 She has reduced her carb and sugared drink intake and her A1C has come down to normal. Will follow twice yearly for now. Influenza vaccine needed 1685425319 106 Z23 65 YEARS AND OLDER [id number] Emiliana Fortune MD Main Office [address] [address] [place] [address] 09/20/2024 09:54:52 09/20/2024 10:38:44 Adult health examination 746416625 Z00.00 UTD with COVID including the bivalent booster.Al so UTD with flu, pneumonia and shingles vaccines.H ad a negative cologuard July 2021 and due again this year.Discu ssed cardiac risk factors.Cherry s osteopenia and due for another bone density; taking calcium w/vitamin D Hyperlipidemia 97022279 E78.5 Running high in the past. Recheck fasting lipids. Intrinsic asthma 0234835 08 J45.909 Usually set off by URI's. She has not had a problem for years. Osteopenia 741638222 M85 .80 Taking calcium w/vitamin D; she will make her own appointmen t. Type 2 jerry betes mellitus 83494688 E11.9 She has reduced her carb and sugared drink intake and her A1C has come down to normal. Will follow twice yearly for now. She also lost 27 lbs over the last year. Bone density finding 385 950466 M85.89 She will schedule her own appointmen t. Screening for malignant neoplasm of colon 454789991 Z12.11 Z12.12 Had a negative cologuard in 2021 and due again this year. Health Concerns Section Related Observation LastModified by Organization Detai ls LastModified Time None Recorded Concern Status LastModified by Organization Details LastModified Time None Recorded Advance Directives Directive N: Payers Insurance Date Sequence Insurance Name Policy Number Policy Waite Covered Member ID Waite Member ID Guarantor Name 09/27/2024 1 [facility] (MEDICARE REPLACEMENT/ ADVANTAGE - PPO) [id number] Lizbet Montero Tanika [id number] Lizbet Montero Tanika 11/17/2023 1 [employer] [id number] Layton Valdez [place] [id number] Lizbet Montero Tanika Notes Date Note Type Note Provider Name and Address Organization Details Recorded Time 08/19/19 24 text/htm l Generic HPI TemplateReported bypatient.Notes:She has been well.Cologuard negative in July 2021 and due again in 1 year.UTD with immunizations including COVID, tetanus, flu, pneumonia and shingles.UTD with mammogram and [facility] care. Emiliana Fortune MD [address], [address], [facility] [place] 08/19/2023 10:49:15 11/18/19 24 text/htm l She [...] inhaler is old. Emiliana Fortune MD [address] [address], [place], [address], [facility] [place] 11/18/2023 12:45:44 12/16/19 24 text/htm l [...] taking any meds. Emiliana Fortune MD [address], [address], [facility] 12/16/2023 10:03:22 05/16/20 24 text/htm l Diabetes [...] months for now. Emiliana Fortune MD [address], [address], [facility] 05/16/2024 16:46:50 09/21/19 25 text/htm l Generic HPI TemplateReported bypatient.Notes:She has been well.Cologuard negative in July 2021 and due again this yearUTD with immunizations including COVID, tetanus, flu, pneumonia and shingles.UTD with mammogram and [facility] care. Medicare Annual Wellness VisitReported bypatient.Diet and [...] falls while walking Emiliana Fortune MD [address], [address], [facility] [place] 09/20/2024 11:59:54 OBGyn Episode No OBEpisode recorded.
== END 2025-01-18 06:54 | disposition home or self-care (01) ==
LOC: HO.HOSX 06:53
PROVIDERS: Visit Provider Physician Assistant
DX: S52.124A Nondisplaced fracture of head of right radius, initial encounter for closed fracture (principal); M25.421 Effusion, right elbow; X58.XXXA Exposure to other specified factors, initial encounter; Y93.9 Activity, unspecified; Y92.9 Unspecified place or not applicable; Y99.9 Unspecified external cause status
CPT/HCPCS: 73080; 99212

== ENCOUNTER 2025-01-18 14:10 | Outpatient (AMB) | payer MEDICARE, SELFPAY ==
--- OUTSIDE RECORDS SUMMARY | 2025-01-18 14:22 | XMS_ITS | Data Portability ---
Author Organization [facility], Main Office Address [address] [facility] [address] [place] [id number] Care Team Providers Care Assistant Food Service Director Name Role Phone EMILIANA FORTUNE Primary Care Provider ADIN DAVE Supervisor Inspecting KAI GONZALEZ Liquor Rectifier Assessment No assessment recorded. Plan of Treatment Reminders Order Date Submit Date Provider Last Modified By Organization Details Last Modified Time Details Appointments FOLLOW UP 2024 09:00A M Emiliana davenport MD Not available Not available Not available Lab HbA1c (hemog lobin A1c), blood 2024 025 [facility] (Centralized Electronic Ordering - All Locations), Patient Can Go To The Location Of Their Choice, 09/21/2024 06:07:50 lipid panel, serum 2024 025 [facility] (Centralized Electronic Ordering - All Locations), Patient Can Go To The Location Of Their Choice, 09/21/2024 06:07:49 microa lbumin /creat inine, mass ratio, urine 2024 025 [facility] (Centralized Electronic Ordering - All Locations), Patient Can Go To The Location Of Their Choice, 10/19/2024 20:08:08 CMP, serum or plasma 2024 025 [facility] (Centralized Electronic Ordering - All Locations), Patient Can Go To The Location Of Their Choice, 09/21/2024 06:07:49 CBC w/ auto diff 2024 025 [facility] (Centralized Electronic Ordering - All Locations), Patient Can Go To The Location Of Their Choice, [id number] 09/21/2024 06:07:48 noninv asive colore ctal cancer DNA + occult blood screen ing, QL, stool 2024 025 [facility] Orders Only), [address], [address], [place], [address], 10/12/2024 12:33:35 hemogl obin A1C, finger stick 2023 024 [email or web address] In-Office Order, Internal Use Only DO Not Attach Compendium DO Not Attach Compendium, Do Not Delete/merge, [id number] 05/16/2024 13:47:17 lipid panel, serum 2023 024 [facility] (Centralized Electronic Ordering - All Locations), Patient Can Go To The Location Of Their Choice, [id number] 12/17/2023 06:12:14 microa lbumin /creat inine, mass ratio, urine 2023 024 [facility] (Centralized Electronic Ordering - All Locations), Patient Can Go To The Location Of Their Choice, [id number] 11/19/2023 14:06:49 hemogl obin A1C, finger stick 2023 024 H[facility]G In-Office Order, Internal Use Only DO Not Attach Compendium DO Not Attach Compendium, Do Not Delete/merge, [id number] 11/18/2023 09:16:29 lipid panel, serum 2023 024 [facility], [address], [address], [place], [address], 08/19/2023 19:47:19 CMP, serum or plasma 2023 024 [facility], [address], [address], [place], [address], 08/19/2023 19:47:17 CBC w/ auto diff 2023 024 [place], [address], [address], 08/19/2023 16:29:35 Referral None record ed. Procedures None record ed. Surgeries None record ed. Imaging bone densit y 2024 025 [email or web address] In-Office Order, Internal Use Only DO Not Attach Compendium DO Not Attach Compendium, Do Not Delete/merge, [id number] 12/19/2024 10:05:53 electr ocardi ogram 2023 024 [email or web address] In-Office Order, Internal Use Only DO Not Attach Compendium DO Not Attach Compendium, Do Not Delete/merge, [id number] 11/18/2023 09:38:35 Medication Orders ProAir HFA 90 mcg/ac tuatio n aeroso l inhale r 2023 024 [place] [id number], [address] [place], [address], 11/18/2023 09:06:51 Patient TargetsNo targets recorded. Patient Instructions Encounter Date Encounter Id Patient Instructions Last Modified By Organization Details Last Modified Time 08/19/2023 [id number] high cholesterol: care instructions [email or web address] Not available 08/19/2023 09:32:28 11/18/2023 [id number] elevated blood pressure: care instructions [email or web address] Not available 11/18/2023 09:11:47 learning about type 2 diabetes [email or web address] Not available 11/18/2023 09:02:30 type 2 diabetes: care instructions [email or web address] Not available 11/18/2023 09:02:30 12/16/2023 [id number] learning about type 2 diabetes [email or web address] Not available 12/16/2023 09:50:39 type 2 diabetes: care instructions [email or web address] Not available 12/16/2023 09:50:39 high cholesterol: care instructions [email or web address] Not available 12/16/2023 09:50:39 Medications (OTC, herbal therapies, supplements) reviewed and reconciled with patient and or caregiver, including potential side effects, drug interactions, instructions, and the consequences of not taking medication. Reviewed potential barriers to medication adherence, such as side effects from medication or cost of medication. [email or web address] Not available 12/16/2023 09:28:11 05/16/2024 [id number] learning about type 2 diabetes [email or web address] Not available 05/16/2024 13:47:17 type 2 diabetes: care instructions [email or web address] Not available 05/16/2024 13:47:17 Medications (OTC, herbal therapies, supplements) reviewed and reconciled with patient and or caregiver, including potential side effects, drug interactions, instructions, and the consequences of not taking medication. Reviewed potential barriers to medication adherence, such as side effects from medication or cost of medication. Not available 05/16/2024 13:25:38 09/20/2024 [id number] learning about type 2 diabetes [email or web address] Not available 09/20/2024 10:23:45 type 2 diabetes: care instructions [email or web address] Not available 09/20/2024 10:23:45 colon cancer screening: care instructions [email or web address] Not available 09/20/2024 10:23:45 high cholesterol: care instructions [email or web address] Not available 09/20/2024 10:23:45 Reason for Referral None Reported. Results Created Date Observation Date Name Description Value Unit Range Abnormal Flag Note LastModifiedBy Organization Detail LastModifiedTime 08/19/1908/19/2023 COMPL ETE BLOOD COUNT WBC 6.9 K/mm3 (4.0-1 1.0) Not Available [facility] (Centralized Electronic Ordering - All Locations) Patient Can Go To The Location Of Their Choice, [id number] 08/19/2023 16:29:35 08/19/19 24 08/19/2023 COMPL ETE BLOOD COUNT RBC 5.13 M/mm3 (4.20- 5.40) Not Available [facility] (Centralized Electronic Ordering - All Locations) Patient Can Go To The Location Of Their Choice, [id number] 08/19/2023 16:29:35 08/19/19 24 08/19/2023 COMPL ETE BLOOD COUNT HGB 14.3 gm/dL (11.7- 15.5) Not Available [facility] (Centralized Electronic Ordering - All Locations) Patient Can Go To The Location Of Their Choice, 08/19/2023 16:29:35 08/19/1908/19/2023 COMPL ETE BLOOD COUNT HCT 44.3 % (35.7- 45.8) Not Available [facility] (Centralized Electronic Ordering - All Locations) Patient Can Go To The Location Of Their Choice, 08/19/2023 16:29:35 08/19/1908/19/2023 COMPL ETE BLOOD COUNT MCV 86.4 fL (80.0- 100.0) Not Available [facility] (Centralized Electronic Ordering - All Locations) Patient Can Go To The Location Of Their Choice, 08/19/2023 16:29:35 08/19/1908/19/2023 COMPL ETE BLOOD COUNT MCH 27.9 pg (27.0- 34.0) Not Available [facility] (Centralized Electronic Ordering - All Locations) Patient Can Go To The Location Of Their Choice, 08/19/2023 16:29:35 08/19/1908/19/2023 COMPL ETE BLOOD COUNT MCHC 32.3 g/dL (33.0- 37.0) low Not Available [facility] (Centralized Electronic Ordering - All Locations) Patient Can Go To The Location Of Their Choice, 08/19/2023 16:29:35 08/19/1908/19/2023 COMPL ETE BLOOD COUNT plt 322 K/mm3 (150-4 60) Not Available [facility] ([facility]ized Electronic Ordering - All Locations) Patient Can Go To The Location Of Their Choice, 08/19/2023 16:29:35 08/19/1908/19/2023 COMPL ETE BLOOD COUNT RDW-SD 37.1 fL (<47.0 ) Not Available [facility] (Centralized Electronic Ordering - All Locations) Patient Can Go To The Location Of Their Choice, 08/19/2023 16:29:35 08/19/1908/19/2023 COMPL ETE BLOOD COUNT MPV 10.2 fL (9.4-1 2.4) Not Available [facility] (Centralized Electronic Ordering - All Locations) Patient Can Go To The Location Of Their Choice, 08/19/2023 16:29:35 08/19/1908/19/2023 COMPL ETE BLOOD COUNT automated NRBC 0.0 #/100 _WBC' s Not Available [facility] (Centralized Electronic Ordering - All Locations) Patient Can Go To The Location Of Their Choice, 08/19/2023 16:29:35 08/19/19 24 08/19/2023 COMPL ETE BLOOD COUNT abs. NRBC 0.0 K/mm3 Not Available [facility] (Centralized Electronic Ordering - All Locations) Patient Can Go To The Location Of Their Choice, 08/19/2023 16:29:35 08/19/19 24 08/19/2023 COMPR EHENS LORAINE METAB OLIC PANL glucose 192 mg/dL (70-99 ) high Not Available [facility] (Centralized Electronic Ordering - All Locations) Patient Can Go To The Location Of Their Choice, 08/19/2023 19:47:17 08/19/1908/19/2023 COMPR EHENS LORAINE METAB OLIC PANL BUN 14 mg/dL (8-23) Not Available [facility] ([facility]ized Electronic Ordering - All Locations) Patient Can Go To The Location Of Their Choice, 08/19/2023 19:47:17 08/19/1908/19/2023 COMPR EHENS LORAINE METAB OLIC PANL creatinine 0.9 mg/dL (0.5-1 .0) Not Available [facility] (Centralized Electronic Ordering - All Locations) Patient Can Go To The Location Of Their Choice, 08/19/2023 19:47:17 08/19/1908/19/2023 COMPR EHENS LORAINE METAB OLIC PANL sodium 139 mmol/ L (133-1 45) Not Available [facility] (Centralized Electronic Ordering - All Locations) Patient Can Go To The Location Of Their Choice, 08/19/2023 19:47:17 08/19/1908/19/2023 COMPR EHENS LORAINE METAB OLIC PANL potassium 4.8 mmol/ L (3.6-5 .2) Not Available [facility] (Centralized Electronic Ordering - All Locations) Patient Can Go To The Location Of Their Choice, 08/19/2023 19:47:17 08/19/1908/19/2023 COMPR EHENS LORAINE METAB OLIC PANL chloride 102 mmol/ L (98-10 7) Not Available [facility] (Centralized Electronic Ordering - All Locations) Patient Can Go To The Location Of Their Choice, 08/19/2023 19:47:17 08/19/1908/19/2023 COMPR EHENS LORAINE METAB OLIC PANL bicarbonate 23 mmol/ L (22-29 ) Not Available [facility] (Centralized Electronic Ordering - All Locations) Patient Can Go To The Location Of Their Choice, 08/19/2023 19:47:08/19/1908/19/2023 COMPR EHENS LORAINE METAB OLIC PANL anion gap 14 (4-17) Not Available [facility] ([facility]ized Electronic Ordering - All Locations) Patient Can Go To The Location Of Their Choice, 08/19/2023 19:47:08/19/1908/19/2023 COMPR EHENS LORAINE METAB OLIC PANL albumin 4.4 gm/dL (3.4-4 .8) Not Available [facility] (Central[facility] Electronic Ordering - All Locations) Patient Can Go To The Location Of Their Choice, 08/19/2023 19:47:17 08/19/1908/19/2023 COMPR EHENS LORAINE METAB OLIC PANL calcium 10.3 mg/dL (8.6-1 0.5) Not Available [facility] (Centralized Electronic Ordering - All Locations) Patient Can Go To The Location Of Their Choice, 08/19/2023 19:47:08/19/1908/19/2023 COMPR EHENS LORAINE METAB OLIC PANL bilirubin,to dann 0.7 mg/dL (0-1.2 ) Not Available [facility] (Centralized Electronic Ordering - All Locations) Patient Can Go To The Location Of Their Choice, 08/19/2023 19:47:08/19/1908/19/2023 COMPR EHENS LORAINE METAB OLIC PANL total protein 7.1 gm/dL (6.2-8 .2) Not Available [facility] ([facility]ized Electronic Ordering - All Locations) Patient Can Go To The Location Of Their Choice, 08/19/2023 19:47:17 02/08/20 24 08/19/2023 COMPR EHENS LORAINE METAB OLIC PANL Ag ratio 1.6 Not Available [facility] (Centralized Electronic Ordering - All Locations) Patient Can Go To The Location Of Their Choice, 08/19/2023 19:47:17 08/19/19 24 08/19/2023 COMPR EHENS LORAINE METAB OLIC PANL AST 32 U/L (0-32) Not Available [facility] (Centralized Electronic Ordering - All Locations) Patient Can Go To The Location Of Their Choice, 08/19/2023 19:47:17 08/19/19 24 08/19/2023 COMPR EHENS LORAINE METAB OLIC PANL alk phos 132 U/L (35-10 4) high Not Available [facility] (Centralized Electronic Ordering - All Locations) Patient Can Go To The Location Of Their Choice, 08/19/2023 19:47:17 08/19/19 24 08/19/2023 COMPR EHENS LORAINE METAB OLIC PANL ALT 44 U/L (0-33) high Not Available [facility] (Centralized Electronic Ordering - All Locations) Patient Can Go To The Location Of Their Choice, 08/19/2023 19:47:17 08/19/19 24 08/19/2023 COMPR EHENS LORAINE METAB OLIC PANL estimated GFR creatinine 75 mL/mi n/1.7 3_M2 Creat inine based estim ated glome rular filtr ation (eGFR ) in adult s is calcu lated using the Natio nal Kidne y Found ation recom mikki d 2020 CKD-E PI equat ion. Estim ates GFR from serum creat inine , age and sex. Not Available [facility] (Centralized Electronic Ordering - All Locations) Patient Can Go To The Location Of Their Choice, 08/19/2023 19:47:17 08/19/1908/19/2023 LIPID PANEL cholesterol, total 261 mg/dL (<200) high Not Available [facility] ([facility] - All Locations) Patient Can Go To The Location Of Their Choice, 08/19/2023 19:47:19 08/19/19 24 08/19/2023 LIPID PANEL triglyceride 544 mg/dL (<150) high Not Available [facility] ([facility] Locations) Patient Can Go To The Location Of Their Choice, 08/19/2023 19:47:19 08/19/19 24 08/19/2023 LIPID PANEL HDL chol 35 mg/dL (>39) low Not Available [facility] ([facility]ized Electronic Ordering - All Locations) Patient Can Go To The Location Of Their Choice, 08/19/2023 19:47:19 08/19/19 24 08/19/2023 LIPID PANEL LDL cholesterol, calculated mg/dL (0-130 ) Unabl e to calcu late LDL douglas strol not calcu lated when trigl yceri miriam are great er than or equal to 400 mg/dL . Not Available [facility] (Centralized Electronic Ordering - All Locations) Patient Can Go To The Location Of Their Choice, 08/19/2023 19:47:19 08/19/1908/19/2023 LIPID PANEL non HDL cholesterol (calc) 226 mg/dL (<160) high Not Available [facility] ([facility] Order[facility] - All Locations) Patient Can Go To The Location Of Their Choice, 08/19/2023 19:47:19 08/19/1908/20/2023 HEMOG LOBIN A1C hemoglobin A1C 7.0 % (4.0-5 .6) high MONIT ORING : In known diabe tic patie nts, hemog lobin A1c targe ts shoul d be discu ssed with healt h care provi she[place]. DIAGN OSTIC USE: The Ameri can Diabe alyssia Assoc iatio n (ADA) and the World Healt h Organ izati on (WHO) recom mend the use of HbA1c to diagn ose diabe alyssia using a thres hold of 6.5%. Patie nts who have an HbA1c betwe en 5.7% and 6.4% are consi dered at incre ased risk for devel oping diabe alyssia in the futur e. CAUTI ON: False ly low HbA1c resul ts may be obser celine in patie nts with hemol ytic anemi a, homoz ygous forms of abnor mal hemog lobin (e.g. SS, CC, SC), pregn armen, recen t blood loss or hemog lobin F great er than 7%. Fruct osami ne may be used as an alter lydia test in these cases . REFER ENCE: ADA: Stand ards of Medic al Care in Diabe alyssia 2019, The Journ al of Clini john and Appli ed Resea [facility] and Educa tion Volum e 43, Suppl ement 1 Not Available [facility] (Centralized Electronic Ordering - All Locations) Patient Can Go To The Location Of Their Choice, [id number] 08/20/2023 22:46:14 11/18/19 24 11/19/2023 ALBUM IN/CR EAT RATIO , RANDO M UR creatinine, urine 146.4 mg/dL not estab. Not Available [facility] ([facility]) [address] [facility], [place], [address], 11/19/2023 14:06:49 11/18/19 24 11/19/2023 ALBUM IN/CR EAT RATIO , RANDO M UR albumin, urine 17.8 ug/mL not estab. Not Available [facility] ([facility]) [address] [facility], [place], [address], 11/19/2023 14:06:49 11/18/19 24 11/19/2023 ALBUM IN/CR EAT RATIO , RANDO M UR alb/creat ratio 12 mg/g_ creat 0-29 Phyllis l: 0 - 29 Moder ately incre ased: 30 - 300 Sever lashay incre ased: >300 Not Available [facility] ([facility]) [address] [facility], [place], [address], 11/19/2023 14:06:49 11/18/19 24 11/18/2023 hemog lobin A1C, finge rstic k A1C 5.6 % 4-6 normal Not Available In-Office Order Internal Use Only DO Not Attach Compendium DO Not Attach Compendium, Do Not Delete/merge, [id number] 11/18/2023 09:09:59 12/16/1912/16/2023 LIPID PANEL cholesterol, total 193 mg/dL 100-19 9 Not Available [facility] ([facility]) [address] [place], [address], 12/17/2023 06:12:14 12/16/19 24 12/16/2023 LIPID PANEL triglyceride s 169 mg/dL 0-149 above high normal Not Available [facility] ([facility]) [address] [place], [address], 12/17/2023 06:12:14 12/16/19 24 12/16/2023 LIPID PANEL HDL cholesterol 40 mg/dL >39 Not Available [facility] ([facility]) [address] [place], [address], 12/17/2023 06:12:14 12/16/19 24 12/16/2023 LIPID PANEL VLDL cholesterol john 30 mg/dL 5-40 Not Available [facility] ([facility]) [address] [place], [address], 12/17/2023 06:12:14 12/16/19 24 12/16/2023 LIPID PANEL LDL chol calc ([facility]) 123 mg/dL 0-99 above high normal Not Available [facility] ([facility]) [address] [place], [address], 12/17/2023 06:12:14 12/16/19 24 12/16/2023 LIPID PANEL comment: STULL INSTALLER Not Available [facility] ([facility]) [address] [place], [address], 12/17/2023 06:12:14 05/16/20 24 05/16/2024 hemog lobin A1C, finge rstic k A1C 5.1 % 4-6 normal Not Available In-Office Order Internal Use Only DO Not Attach Compendium DO Not Attach Compendium, Do Not Delete/merge, [id number] 05/16/2024 13:25:44 09/21/1909/20/2024 CBC WITH DIFFE MIGUEL AL/PL ATELE T WBC 11.5 x10e3 /uL 3.4-10 .8 above high normal Not Available [facility] ([facility]) [address] [place], [address], 09/21/2024 06:07:48 09/21/19 25 09/20/2024 CBC WITH DIFFE RENTI AL/PL ATELE T RBC 5.19 x10e6 /uL 3.77-5 .28 normal Not Available [facility] ([facility]) [address] [place], [address], 09/21/2024 06:07:48 09/21/19 25 09/20/2024 CBC WITH DIFFE RENTI AL/PL ATELE T hemoglobin 14.9 g/dL 11.1-1 5.9 normal Not Available [facility] ([facility]) [address] [place], [address], 09/21/2024 06:07:48 09/21/19 25 09/20/2024 CBC WITH DIFFE RENTI AL/PL ATELE T hematocrit 45.8 % 34.0-4 6.6 normal Not Available [facility] ([facility]) [address] [place], [address], 09/21/2024 06:07:48 09/21/19 25 09/20/2024 CBC WITH DIFFE RENTI AL/PL ATELE T MCV 88 fL 79-97 normal Not Available [facility] ([facility]) [address] [place], [address], 09/21/2024 06:07:48 09/21/19 25 09/20/2024 CBC WITH DIFFE RENTI AL/PL ATELE T MCH 28.7 pg 26.6-3 3.0 normal Not Available [facility] ([facility]) [address] [place], [address], 09/21/2024 06:07:48 09/21/19 25 09/20/2024 CBC WITH DIFFE RENTI AL/PL ATELE T MCHC 32.5 g/dL 31.5-3 5.7 normal Not Available [facility] ([facility]) [address] [place], [address], 09/21/2024 06:07:48 09/21/19 25 09/20/2024 CBC WITH DIFFE RENTI AL/PL ATELE T RDW 11.2 % 11.7-1 5.4 below low normal Not Available [facility] ([facility]) [address] [facility], [place], [address], 09/21/2024 06:07:48 09/21/19 25 09/20/2024 CBC WITH DIFFE RENTI AL/PL ATELE T platelets 267 x10e3 /uL 150-45 0 normal Not Available [facility] ([facility]) [address] [facility], [place], [address], 09/21/2024 06:07:48 09/21/19 25 09/20/2024 CBC WITH DIFFE RENTI AL/PL ATELE T neutrophils 77 % not estab. normal Not Available [facility] ([facility]) [address] [facility], [place], [address], 09/21/2024 06:07:48 09/21/19 25 09/20/2024 CBC WITH DIFFE RENTI AL/PL ATELE T lymphs 16 % not estab. normal Not Available [facility] ([facility]) [address] [facility], [place], [address], 09/21/2024 06:07:48 09/21/19 25 09/20/2024 CBC WITH DIFFE RENTI AL/PL ATELE T monocytes 6 % not estab. normal Not Available [facility] ([facility]) [address] [facility], [place], [address], 09/21/2024 06:07:48 09/21/19 25 09/20/2024 CBC WITH DIFFE RENTI AL/PL ATELE T eos 1 % not estab. normal Not Available [facility] ([facility]) [address] [place], [address], 09/21/2024 06:07:48 09/21/19 25 09/20/2024 CBC WITH DIFFE RENTI AL/PL ATELE T basos 0 % not estab. normal Not Available [facility] ([facility]) [address] [place], [address], 09/21/2024 06:07:48 09/21/19 25 09/20/2024 CBC WITH DIFFE RENTI AL/PL ATELE T immature cells STULL INSTALLER Not Available [facility] ([facility]) [address] [place], [address], 09/21/2024 06:07:48 09/21/19 25 09/20/2024 CBC WITH DIFFE RENTI AL/PL ATELE T neutrophils (absolute) 8.7 x10e3 /uL 1.4-7. 0 above high normal Not Available [facility] ([facility]) [address] [place], [address], 09/21/2024 06:07:48 09/21/19 25 09/20/2024 CBC WITH DIFFE RENTI AL/PL ATELE T lymphs (absolute) 1.9 x10e3 /uL 0.7-3. 1 normal Not Available [facility] ([facility]) [address] [place], [address], 09/21/2024 06:07:48 09/21/19 25 09/20/2024 CBC WITH DIFFE RENTI AL/PL ATELE T monocytes(ab solute) 0.7 x10e3 /uL 0.1-0. 9 normal Not Available [facility] ([facility]) [address] [place], [address], 09/21/2024 06:07:48 09/21/19 25 09/20/2024 CBC WITH DIFFE RENTI AL/PL ATELE T eos (absolute) 0.2 x10e3 /uL 0.0-0. 4 normal Not Available [facility] ([facility]) [address] [place], [address], 09/21/2024 06:07:48 09/21/19 25 09/20/2024 CBC WITH DIFFE RENTI AL/PL ATELE T baso (absolute) 0.0 x10e3 /uL 0.0-0. 2 normal Not Available [facility] ([facility]) [address] [facility], [place], [address], 09/21/2024 06:07:48 09/21/19 25 09/20/2024 CBC WITH DIFFE RENTI AL/PL ATELE T immature granulocytes 0 % not estab. Not Available [facility] ([facility]) [address] [facility], [place], [address], 09/21/2024 06:07:48 09/21/19 25 09/20/2024 CBC WITH DIFFE RENTI AL/PL ATELE T immature grans (abs) 0.0 x10e3 /uL 0.0-0. 1 Not Available [facility] ([facility]) [address] [facility], [place], [address], 09/21/2024 06:07:48 09/21/19 25 09/20/2024 CBC WITH DIFFE RENTI AL/PL ATELE T NRBC STULL INSTALLER Not Available [facility] ([facility]) [address] [facility], [place], [address], 09/21/2024 06:07:48 09/21/19 25 09/20/2024 CBC WITH DIFFE RENTI AL/PL ATELE T hematology comments: STULL INSTALLER Not Available [facility] ([facility]) [address] [facility], [place], [address], 09/21/2024 06:07:48 09/21/19 25 09/21/2024 COMP. METAB OLIC PANEL (14) glucose 121 mg/dL 70-99 above high normal Not Available [facility] ([facility]) [address] [facility], [place], [address], 09/21/2024 06:07:49 09/21/19 25 09/21/2024 COMP. METAB OLIC PANEL (14) BUN 19 mg/dL 8-27 normal Not Available [facility] ([facility]) [address] [facility], [place], [address], 09/21/2024 06:07:49 09/21/19 25 09/21/2024 COMP. METAB OLIC PANEL (14) creatinine 0.92 mg/dL 0.57-1 .00 normal Not Available [facility] ([facility]) [address] [facility], [place], [address], 09/21/2024 06:07:49 09/21/19 25 09/21/2024 COMP. METAB OLIC PANEL (14) eGFR 67 mL/mi n/1.7 3 >59 normal Not Available [facility] ([facility]) [address] [facility], [place], [address], 09/21/2024 06:07:49 09/21/19 25 09/21/2024 COMP. METAB OLIC PANEL (14) BUN/creatini ne ratio 21 12-28 normal Not Available [facility] ([facility]) [address] [facility], [place], [address], 09/21/2024 06:07:49 09/21/19 25 09/21/2024 COMP. METAB OLIC PANEL (14) sodium 140 mmol/ L 134-14 4 normal Not Available [facility] ([facility]) [address] [place], [address], 09/21/2024 06:07:49 09/21/19 25 09/21/2024 COMP. METAB OLIC PANEL (14) potassium 4.8 mmol/ L 3.5-5. 2 normal Not Available [facility] ([facility]) [address] [facility], [place], [address], 09/21/2024 06:07:49 09/21/19 25 09/21/2024 COMP. METAB OLIC PANEL (14) chloride 101 mmol/ L 96-106 normal Not Available [facility] ([facility]) [address] [facility] [place], [address], 09/21/2024 06:07:49 09/21/19 25 09/21/2024 COMP. METAB OLIC PANEL (14) carbon dioxide, total 23 mmol/ L 20-29 normal Not Available [facility] ([facility]) [address] [facility] [place], [address], 09/21/2024 06:07:49 09/21/19 25 09/21/2024 COMP. METAB OLIC PANEL (14) calcium 10.0 mg/dL 8.7-10 .3 normal Not Available [facility] ([facility]) [address] [facility] [place], [address], 09/21/2024 06:07:49 09/21/19 25 09/21/2024 COMP. METAB OLIC PANEL (14) protein, total 7.1 g/dL 6.0-8. 5 normal Not Available [facility] ([facility]) [address] [facility] [place], [address], 09/21/2024 06:07:49 09/21/19 25 09/21/2024 COMP. METAB OLIC PANEL (14) albumin 4.7 g/dL 3.9-4. 9 normal Not Available [facility] ([facility]) [address] [facility] [place], [address], 09/21/2024 06:07:49 09/21/19 25 09/21/2024 COMP. METAB OLIC PANEL (14) globulin, total 2.4 g/dL 1.5-4. 5 Not Available [facility] ([facility]) [address] [facility] [place], [address], 09/21/2024 06:07:49 09/21/19 25 09/21/2024 COMP. METAB OLIC PANEL (14) bilirubin, total 0.6 mg/dL 0.0-1. 2 normal Not Available [facility] ([facility]) [address] [facility] [place], [address], 09/21/2024 06:07:49 09/21/19 25 09/21/2024 COMP. METAB OLIC PANEL (14) alkaline phosphatase 115 IU/L 44-121 normal Not Available [facility] ([facility]) [address] [facility] [place], [address], 09/21/2024 06:07:49 09/21/19 25 09/21/2024 COMP. METAB OLIC PANEL (14) AST (SGOT) 24 IU/L 0-40 normal Not Available [facility] ([facility]) [address] [facility] [place], [address], 09/21/2024 06:07:49 09/21/19 25 09/21/2024 COMP. METAB OLIC PANEL (14) ALT (SGPT) 20 IU/L 0-32 normal Not Available [facility] ([place]) [address] [facility] [place], [address], 09/21/2024 06:07:49 09/21/19 25 09/21/2024 LIPID PANEL cholesterol, total 221 mg/dL 100-19 9 above high normal Not Available [facility] ([facility]) [address] [facility] [place], [address], 09/21/2024 06:07:49 09/21/19 25 09/21/2024 LIPID PANEL triglyceride s 208 mg/dL 0-149 above high normal Not Available [facility] ([place]) [address] [facility] [place], [address], 09/21/2024 06:07:49 09/21/19 25 09/21/2024 LIPID PANEL HDL cholesterol 46 mg/dL >39 normal Not Available [facility] ([facility]) [address] [facility] [place], [address], 09/21/2024 06:07:49 09/21/19 25 09/21/2024 LIPID PANEL VLDL cholesterol john 37 mg/dL 5-40 Not Available [facility] ([facility]) [address] [place], [address], 09/21/2024 06:07:49 09/21/19 25 09/21/2024 LIPID PANEL LDL chol calc ([facility]) 138 mg/dL 0-99 above high normal Not Available [facility] ([facility]) [address] [place], [address], 09/21/2024 06:07:49 09/21/1909/21/2024 LIPID PANEL 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 6 normal Predi abete s: 5.7 - 6.4 Diabe alyssia: >6.4 Glyce kelsey contr ol for adult s with diabe alyssia: <7.0 Not Available [facility] ([facility]) [address] [place], [address], 09/21/2024 06:07:50 10/10/1910/09/2024 COLOG UARD cologuard result reportable NEGATI VE negati ve normal NEGAT LORAINE TEST RESUL T. A negat loraine Colog uard resul t indic ates a low likel ihood that a color ectal cance r (CRC) or advan alok adeno ma (dee omato us polyp s with more advan alok pre-m align ant featu res) is prese nt. The chanc e that a perso n with a negat loraine Colog uard test has a color ectal cance r is less than 1 in 1500 (nega tive predi ctive value >99.9 %) or has an advan alok adeno ma is less than 5.3% (nega tive predi ctive value 94.7% ). These data are based on a prosp ectiv e cross -sect ional study of 10,00 0 indiv idual s at [place] risk for color ectal cance r who were scree tushar with both Colog uard and colon oscop y. (Madisyn Deshpande et al, N Engl J Med 2014; 370(1 4):12 86-12 97) The phyllis l value (refe rence range ) for this assay is negat loraine. COLOG UARD RE-SC REENI NG RECOM MENDA TION: Perio dic color ectal cance r scree vicky is an impor tant part of preve ntive healt hcare for asymp tomat ic indiv idual s at [place] risk for color ectal cance r. Follo wing a negat loraine Colog uard resul t, the Ameri can Cance r Socie ty and U.S. Multi -Soci ety Task Force scree vicky guide lines recom mend a Colog uard re-sc reeni ng inter klever of 3 years . Refer ences : Ameri can Cance r Socie ty Guide line for Color ectal Cance r Scree vicky: https ://jayna w.can cer.o rg/ca ncer/ colon -rect al-ca ncer/ detec tion- diagn osis- stagi ng/ac s-rec ommen datio ns.ht ml.; Mario ROCA, Mai harry CR, Mary DUCKWORTH, Color ectal Cance r Scree vciky: Recom menda tions for Physi cians and Patie nts from the U.S. Multi -Soci ety Task Force on Color ectal Cance r Scree vicky , Am Melania Gastr oente rolog y 2017; 112:1 016-1 030. TEST DESCR IPTIO N: [place] site algor ithmi c tommie sis of stool DNA-b iomar kers with hemog lobin immun oassa y. Quant itati ve value s of indiv idual bioma rkers are not repor table and are not assoc iated with indiv idual bioma rker resul t refer ence range s. Colog uard is inten ded for color ectal cance r scree vicky of adult s of eithe r sex, 45 years or older , who are at [facility] for color ectal cance r (CRC) . Colog uard has been appro celine for use by the U.S. FDA. The perfo rmanc e of Colog uard was estab lishe d in a cross secti onal study of [facility] adult s aged 50-84 . Colog uard perfo rmanc e in patie nts ages 45 to 49 years was estim ated by sub-g isabellap tommie sis of near- age group s. Colon oscop ies perfo rmed for a posit loraine resul t may find as the most clini concepcion signi luis a t cora n: color ectal cance r [4.0% ], advan alok adeno ma (incl uding sessi le iris elena polyp s great er than or equal to 1cm diame ter) [20%] or non- advan alok adeno ma [31%] ; or no color ectal neopl liana [45%] . These estim ates are deriv ed from a prosp ectiv e cross -sect ional scree vicky study of 0 indiv idual s at [facility] risk for color ectal cance r who were scree tushar with both Colog uard and colon oscop y. (Madisyn Bray al, N Engl J Med 2014; 370(1 4):12 86-12 97.) Colog uard may produ ce a false negat loraine or false posit loraine resul t (no color ectal cance r or preca ncero us polyp prese nt at colon oscop y follo w up). A negat loraine Colog uard test resul t does not guara ntee the absen ce of CRC or advan alok adeno ma (pre- cance r). The curre nt Colog uard scree vicky inter klever is every 3 years . (Amer ican Cance r Socie ty and U.S. Multi -Soci ety Task Force ). Colog uard perfo rmanc e data in a 0 patie nt pivot al study using colon oscop y as the refer ence metho d can be acces sed at the follo wing locat ion: www.e xactl abs.c om/re sulkamran . Addit ional descr iptio n of the Colog uard test proce ss, warni ngs and preca ution s can be found at www.c wendyogu zane.c om. Not Available [facility] (Cologuard Orders Only) [address], [place], [address], 10/12/2024 12:33:35 10/19/19 25 10/19/2024 ALBUM IN/CR EAT RATIO , RANDO M UR creatinine, urine 65.7 mg/dL not estab. normal Not Available [facility] ([facility]) [address] [facility], [place], [address], 10/19/2024 20:08:08 10/19/19 25 10/19/2024 ALBUM IN/CR EAT RATIO , RANDO M UR albumin, urine 11.9 ug/mL not estab. Not Available [facility] ([facility]) [address] [facility], [place], [address], 10/19/2024 20:08:08 10/19/19 25 10/19/2024 ALBUM IN/CR EAT RATIO , RANDO M UR alb/creat ratio 18 mg/g_ creat 0-29 Phyllis l: 0 - 29 Moder ately incre ased: 30 - 300 Sever lashay incre ased: >300 Not Available [facility] ([facility]) [address] [facility], [place], [address], 10/19/2024 20:08:08 11/18/19 24 11/18/2023 elect joaquina shaikhgr am No observ ation record ed. [email or web address] In-Office Order Internal Use Only DO Not Attach Compendium DO Not Attach Compendium, Do Not Delete/merge, [id number] 11/18/2023 10:49:49 11/18/19 24 elect joaquina diogr am No observ ation record ed. [email or web address] In-Office Order Internal Use Only DO Not Attach Compendium DO Not Attach Compendium, Do Not Delete/merge, [id number] 11/22/2023 10:55:45 02/11/2002/11/2024 MAMMO , scree vicky, digit al, bilat eral PROCED URE: MM Digita l Mammo Screen ing INDICA TION: Screen ing for breast cancer . No known palpab le abnorm alitie s. COMPAR SANDRA: Prior mammog micheal most recent ly dated 023. TECHNI QUE: Full-f ield digita l CC and MLO 3D tomosy nthesi s images of both breast s were acquir ed. Comput er-aid ed detect ion (CAD) was utiliz ed in the interp retati on of this study. DENSIT Y: There are scatte red areas of fibrog landul ar densit y. FINDIN GS: No suspic ious masses , suspic ious microc alcifi cation s, or areas of bessie ectura l distor tion are seen in either breast to sugges t malign armen. IMPRES GALO: No mammog raphic eviden ce of malign armen. RECOMM ENDATI ON: Annual mammog raphic screen ing BI-RAD S: 1 (Negat loraine) Lay letter mailed to reji reyes WSN: [id number] Orderi ng Physic annette: Emiliana Leon Dictat ed By: Rishi Guzman MD Dictat ed Date/T sushil: 10:10 am Review ed By: Rishi Guzman MD Signed By: Rishi Guzman MD Signed Date/T sushil: 10:10 am Transc ribed By: MARSHA Transc riptio n Date/T sushil: 9:56 am Birads : Reji reyes Class: Outpat ient [id number] [facility] (Outpt Imaging) [address] [place], [address], 02/11/2024 10:19:24 12/03/19 25 11/23/2024 DEXA, axial skele ton Name:José Miguel reyes ID: [id number] Age:69 years Sex:Fe male Ethnic ity:Wh ite Date of : [birth year] Reason : M85.89 OTHER SPECIF ICED DISORD ERS of bone densit y and struct ure. Postme nopaus al. Referr ing Provid er:Jyoti torres Study: Dexa Bone Densit y (Axial ) Bone Densit y: Region BMD T-Scor e Z-Scor e Classi ficati on AP Spine 0.827 -2.0 0.1 Osteop enia TOTAL HIP 0.737 -1.7 -0.2 Osteop enia FEM NECK 0.653 -1.8 0.0 Osteop enia 10-yea r Fractu re Risk: 1 FRAX(R ) Versio n 3.08. Fractu re probab ility calcul ated for an untrea elena patien t. Fractu re probab ility may be lower if the patien t has receiv ed treatm ent. Major Osteop orotic Fractu re 10% Hip Fractu re 1.7% RATE OF CHANGE (SPINE ): BMD values have increa sed 4.8% from previo us BMD values have increa sed 4.8% from baseli ne RATE OF CHANGE (TOTAL HIP): BMD values have decrea sed 4.6% from previo us BMD values have decrea sed 4.6% from baseli ne RATE OF CHANGE (FEMOR AL NECK): BMD values have decrea sed 7.9% from previo us BMD values have decrea sed 7.9% from baseli ne Impres galo: The patien t has osteop enia as determ ined by WHO criter ia. Based on the result s of the patien t's bone densit y assess ment, the risk of future fractu re increa ses approx imatel y two fold for each 1.0 SD decrea se in T-scor e. Howeve r, low BMD is not the only risk factor for a future fragil ity fractu re. Other clinic al risk factor s for osteop orotic fractu re should be consid ered in ascert aining this patien t's future fractu re risk includ ing the patien t's age, previo us osteop orotic (fragi lity) fractu re, estrog en defici ency/h ypogon adism, risk of fallin g, use of medica tions implic ated in bone loss (gluco cortic oids), family histor y of osteop orotic fractu re, diseas es and condit ions associ ated with bone loss, low body weight , smokin g, high bone turnov er, etc. Combin ing low BMD and other clinic al risk factor s result in a more precis e assess ment of future fractu re risk. Second ya causes for osteop orosis , such as osteom alacia , other metabo lic bone disord ers, and diseas es and condit ions that may contri bute to accele rated bone loss may have to be consid ered depend ing on the clinic al situat ion. A repeat bone densit y assess ment should be consid ered in two years. WSN: [id number] Orderi ng Physic annette: Emiliana Leon Dictat ed By: Geraldine Myrick ra, MD Dictat ed Date/T sushil: 8:40 am Review ed By: Geraldine Myrick ra, MD Signed By: Geraldine Myrick ra, MD Signed Date/T sushil: 8:40 am Transc ribed By: MARSHA Transc ribed Date/T sushil: 8:39 am Patien t Class: Outpat [facility] (Outpt Imaging) [address] [place] [address], [address], 12/02/2024 11:19:26 Result Notes Documentation Provider Name and Address Organization Details Recorded Time Mammo, Screening, Digital, Bilateral : PROCEDURE: MM Digital Mammo Screening INDICATION: Screening for breast cancer. No known palpable abnormalities. COMPARISON: Prior mammograms most recently dated 02/01/2023. TECHNIQUE: Full-field digital CC and MLO 3D tomosynthesis images of both breasts were acquired. Computer-aided detection (CAD) was utilized in the interpretation of this study. DENSITY: There are scattered areas of fibroglandular density. FINDINGS: No suspicious masses, suspicious microcalcifications, or areas of architectural distortion are seen in either breast to suggest malignancy. IMPRESSION: No mammographic evidence of malignancy. RECOMMENDATION: Annual mammographic screening BI-RADS: 1 (Negative) Lay letter mailed to patient WSN: [id number] Ordering Physician: Emiliana Fortune Dictated By: Henna Guzman MD Dictated Date/Time: 02/11/24 10:10 am Reviewed By: Henna Guzman MD Signed By: Henna Guzman MD Signed Date/Time: 02/11/24 10:10 am Transcribed By: MARSHA Supervisor Diagnostic Date/Time: 02/11/24 9:56 am Birads: Patient Class: Outpatient Fawn Alvarado [facility] 02/11/2024 10:19:24 Dexa, Axial Skeleton : Name:LIZBET HOLLOWAY Age:69 years Sex:Female Ethnicity:White Date of :1955 Reason: M85.89 OTHER SPECIFICED DISORDERS of bone density and structure. Postmenopausal. Referring Provider:Emiliana Fortune Study:Dexa Bone Density (Axial) Bone Density: Region BMD T-Score Z-Score Classification AP Spine 0.827 -2.0 0.1 Osteopenia TOTAL HIP 0.737 -1.7 -0.2 Osteopenia FEM NECK 0.653 -1.8 0.0 Osteopenia 10-year Fracture Risk: 1 FRAX(R) Version 3.08. Fracture probability calculated for an untreated patient. Fracture probability may be lower if the patient has received treatment. Major Osteoporotic Fracture 10% Hip Fracture 1.7% RATE OF CHANGE(SPINE): BMD values have increased 4.8% from previous BMD values have increased 4.8% from baseline RATE OF CHANGE(TOTAL HIP): BMD values have decreased 4.6% from previous BMD values have decreased 4.6% from baseline RATE OF CHANGE(FEMORAL NECK): BMD values have decreased 7.9% from previous BMD values have decreased 7.9% from baseline Impression: The patient has osteopenia as determined by WHO criteria. Based on the results of the patient's bone density assessment, the risk of future fracture increases approximately two fold for each 1.0 SD decrease in T-score. However, low BMD is not the only risk factor for a future fragility fracture. Other clinical risk factors for osteoporotic fracture should be considered in ascertaining this patient's future fracture risk including the patient's age, previous osteoporotic (fragility) fracture, estrogen deficiency/hypogonadism, risk of falling, use of medications implicated in bone loss (glucocorticoids), family history of osteoporotic fracture, diseases and conditions associated with bone loss, low body weight, smoking, high bone turnover, etc. Combining low BMD and other clinical risk factors result in a more precise assessment of future fracture risk. Secondary causes for osteoporosis, such as osteomalacia, other metabolic bone disorders, and diseases and conditions that may contribute to accelerated bone loss may have to be considered depending on the clinical situation. A repeat bone density assessment should be considered in two years. WSN: [id number] Ordering Physician: Emiliana Fortune Dictated By: Geraldine Preciado MD Dictated Date/Time: 12/02/24 8:40 am Reviewed By: Geraldine Preciado MD Signed By: Geraldine Preciado MD Signed Date/Time: 12/02/24 8:40 am Transcribed By: MARSHA Transcribed Date/Time: 12/02/24 8:39 am Patient Class: Outpatient Emiliana Fortune MD [address], [address], [facility] 12/02/2024 09:02:06 Problems Name Problem SNOMED Code Status Onset Date Resolution Date Notes Provider Name and Address Organization Details Recorded Time Patient status finding [id number] Completed 201202/15/2014 RECORDED 06/05/20 13 9:17AM BY MICHELLE COSBY ON/ADDEN DUM Not Available [facility] 4 12:22:26 Asthma [id number] Completed 200902/15/2014 RECORDED 04/24/20 10 9:51AM BY BRAD MURPHY MA, ANNOTATI ON/ADDEN DUM Not Available [facility] 4 12:22:26 Screenin g for malignan t neoplasm of breast Completed 201102/15/2014 RECORDED 02/04/20 12 8:41AM BY ANALY WILDER MA, MICHELLE ON/ADDEN DUM Not Available [facility] 4 12:22:27 Abnormal feces [id number] Completed 201305/10/2014 RECORDED 12/09/19 14 4:07PM BY STEVEN HINES I, NURSE VISIT Emiliana Fortune MD [address] [facility] [address], [place], [address] , [facility] 4 10:41:46 Screenin g for malignan t neoplasm of cervix Completed 201102/15/2014 RECORDED 02/04/20 12 8:41AM BY ANALY WILDER MA, ANNOTATI ON/ADDEN DUM Not Available [facility] 4 12:22:27 Screenin g for malignan t neoplasm of colon Completed 201102/15/2014 RECORDED 02/04/20 12 8:41AM BY ANALY WILDER MA, ANNOTATI ON/ADDEN DUM Not Available [facility] 4 12:22:27 Malaise and fatigue [id number] Completed 201102/15/2014 RECORDED 02/04/20 12 8:41AM BY ANALY WILDER MA, ANNOTATI ON/ADDEN DUM Not Available [facility] 4 12:22:27 Influenz a vaccine needed [id number] Completed 201202/15/2014 RESOLVED DATE: 06/05/20 13; RECORDED 06/05/20 13 9:17AM BY STEVEN HINES I, ANNOTATI ON/ADDEN DUM Not Available [facility] 4 12:22:27 Adult health examinat ion Completed 201202/15/2014 RECORDED 06/05/20 13 9:17AM BY STEVEN HINES I, ANNOTATI ON/ADDEN DUM Not Available [facility] 4 12:22:27 Headache [id number] Completed 201102/15/2014 IMPRESSI ON: PT WITH SUSPECTE D TENSION HEADACHE S SECONDAR Y TO INCREASE D STRESS AT HOME. DISCUSSE D ROOT CAUSE OF SXS, ALREADY SEEING THERAPIS T, TRYING TO DO YOGA/REL AXATION MORE. SHE DECLINES PHARMACO THERAPY FOR TIME BEING. WOULD PREFER NOT TAKING MEDS FOR HEADACHE S, HAS SOME INTEREST IN TRIGGER PT TXS. WILL START WITH PT, IF INEFFECT LORAINE MAY THEN REFER TO NEURO FOR INJECTIO NS.; RECORDED 05/05/20 12 8:37AM BY FOSTER WINKLER MA, ANNOTATI ON/ADDEN DUM Not Available [facility] 4 12:22:27 Pure hypercho lesterol emia [id number] Completed 201202/15/2014 RECORDED 06/05/20 13 9:16AM BY STEVEN HINES I, ANABELATI ON/ADDEN DUM Not Available [facility] 4 12:22:27 Influenz a with respirat ory manifest ation other than pneumoni a Completed 200902/15/2014 RECORDED 04/17/20 10 5:32PM BY WILLIAM LLAMAS, ANABELATI ON/ADDEN DUM Not Available [facility] 4 12:22:27 Localize d superfic ial swelling of skin [id number] Completed 201102/15/2014 RECORDED 02/04/20 12 8:41AM BY ANALY WILDER MA, ANNOTATI ON/ADDEN DUM Not Available [facility] 4 12:22:27 Administ ration of bacteria l and viral vaccine Completed 200802/15/2014 RECORDED 04/23/20 09 9:56AM BY CHUY MURPHY, OFFICE VISIT Not Available [facility] 4 12:22:27 Examinat ion for suspecte d mental disorder Completed 201102/15/2014 RECORDED 05/05/20 12 8:38AM BY FOSTER WINKLER MA, ANNOTATI ON/ADDEN DUM Not Available [facility] 4 12:22:27 Chronic sinusiti s [id number] Completed 201102/15/2014 RECORDED 02/04/20 12 8:41AM BY ANALY WILDER MA, ANNOTATI ON/ADDEN DUM Not Available [facility] 4 12:22:27 Sprains and strains of joints and adjacent muscles Completed 200902/15/2014 IMPRESSI ON: NORMAL EXAM, NO SIGNS OF INFX OR PALPABLE MASSES. SUSPECT MUSCULAR . RECOMMEN DED REST, INTERMIT TENT HEAT AND USE OF NSAID FOR PAIN. TO CALL OFFICE IF CONTINUE S TO WORSEN OR PERSISTS WITH THE ABOVE TXS.; RECORDED 04/17/20 10 5:32PM BY WILLIAM LLAMAS, ANNOTATI ON/ADDEN DUM Not Available [facility] 4 12:22:27 Pain in limb [id number] Completed 201102/15/2014 IMPRESSI ON: FOLLOWIN G TRAUMA LAST NIGHT. XRAY TO R/O FX, ADVISED RE SX CARE WITH WILTON TAPING, REST, ELEVATIO N, USE OF PRN NSAID. WILL CONTACT PT WITH RESULT WHEN AVAIL.; RECORDED 02/04/20 12 8:41AM BY ANALY WILDER MA, ANNOTATI ON/ADDEN DUM Not Available [facility] 4 12:22:28 Patient status finding [id number] Completed 201202/16/2014 RECORDED 06/05/20 13 9:17AM BY STEVEN HINES I, ANNOTATI ON/ADDEN DUM Not Available [facility] 4 03:37:07 Asthma [id number] Completed 200902/16/2014 RECORDED 04/24/20 10 9:51AM BY BRAD MURPHY MA, ANNOTATI ON/ADDEN DUM Not Available [facility] 4 03:37:07 Screenin g for malignan t neoplasm of breast Completed 201102/16/2014 RECORDED 02/04/20 12 8:41AM BY ANALY WILDER MA, ANNOTATI ON/ADDEN DUM Not Available [facility] 4 03:37:07 Screenin g for malignan t neoplasm of cervix Completed 201102/16/2014 RECORDED 02/04/20 12 8:41AM BY ANALY WILDER MA, ANNOTATI ON/ADDEN DUM Not Available [facility] 4 03:37:07 Screenin g for malignan t neoplasm of colon Completed 201102/16/2014 RECORDED 02/04/20 12 8:41AM BY ANALY WILDER MA, ANNOTATI ON/ADDEN DUM Not Available [facility] 4 03:37:07 Malaise and fatigue [id number] Completed 201102/16/2014 RECORDED 02/04/20 12 8:41AM BY ANALY WILDER MA, ANABELATI ON/ADDEN DUM Not Available [facility] 4 03:37:07 Influenz a vaccine needed [id number] Completed 201202/16/2014 RESOLVED DATE: 06/05/20 13; RECORDED 06/05/20 13 9:17AM BY ANABEL COSBYATI ON/ADDEN DUM Not Available [facility] 4 03:37:07 Adult health examinat ion Completed 201202/16/2014 RECORDED 06/05/20 13 9:17AM BY STEVEN HNIES I ANNOTATI ON/ADDEN DUM Not Available [facility] 4 03:37:07 Headache [id number] Completed 201102/16/2014 IMPRESSI ON: PT WITH SUSPECTE D TENSION HEADACHE S SECONDAR Y TO INCREASE D STRESS AT HOME. DISCUSSE D ROOT CAUSE OF SXS, ALREADY SEEING THERAPIS T, TRYING TO DO YOGA/REL AXATION MORE. SHE DECLINES PHARMACO THERAPY FOR TIME BEING. WOULD PREFER NOT TAKING MEDS FOR HEADACHE S, HAS SOME INTEREST IN TRIGGER PT TXS. WILL START WITH PT, IF INEFFECT LORAINE MAY THEN REFER TO NEURO FOR INJECTIO NS.; RECORDED 05/05/20 12 8:37AM BY FOSTER WINKLER MA, ANNOTATI ON/ADDEN DUM Not Available [facility] 4 03:37:07 Pure hypercho lesterol emia [id number] Completed 201202/16/2014 RECORDED 06/05/20 13 9:16AM BY ANABEL COSBYATI ON/ADDEN DUM Not Available [facility] 4 03:37:07 Influenz a with respirat ory manifest ation other than pneumoni a Completed 200902/16/2014 RECORDED 04/17/20 10 5:32PM BY ANABEL SEGOVIAATI ON/ADDEN DUM Not Available [facility] 4 03:37:07 Localize d superfic ial swelling of skin [id number] Completed 201102/16/2014 RECORDED 02/04/20 12 8:41AM BY ANALY WILDER MA, ANNOTATI ON/ADDEN DUM Not Available [facility] 4 03:37:07 Administ ration of bacteria l and viral vaccine Completed 200802/16/2014 RECORDED 04/23/20 09 9:56AM BY CHUY MURPHY, OFFICE VISIT Not Available [facility] 4 03:37:07 Examinat ion for suspecte d mental disorder Completed 201102/16/2014 RECORDED 05/05/20 12 8:38AM BY FOSTER WINKLER MA, ANABELATI ON/ADDEN DUM Not Available [facility] 4 03:37:07 Chronic sinusiti s [id number] Completed 201102/16/2014 RECORDED 02/04/20 12 8:41AM BY ANALY WILDER MA, ANABELATI ON/ADDEN DUM Not Available [facility] 4 03:37:07 Sprains and strains of joints and adjacent muscles Completed 200902/16/2014 IMPRESSI ON: NORMAL EXAM, NO SIGNS OF INFX OR PALPABLE MASSES. SUSPECT MUSCULAR . RECOMMEN DED REST, INTERMIT TENT HEAT AND USE OF NSAID FOR PAIN. TO CALL OFFICE IF CONTINUE S TO WORSEN OR PERSISTS WITH THE ABOVE TXS.; RECORDED 04/17/20 10 5:32PM BY MCIHELLE SEGOVIA ON/ADDEN DUM Not Available [facility] 4 03:37:07 Pain in limb 88713609 Completed 201102/16/2014 IMPRESSI ON: FOLLOWIN G TRAUMA LAST NIGHT. XRAY TO R/O FX, ADVISED RE SX CARE WITH WILTON TAPING, REST, ELEVATIO N, USE OF PRN NSAID. WILL CONTACT PT WITH RESULT WHEN AVAIL.; RECORDED 02/04/20 12 8:41AM BY ANALY WILDER MA, ANABELATI ON/ADDEN DUM Not Available [facility] 4 03:37:07 Body mass index 25-29 - overweig [id number] Completed 05/16/2024 Removal Reason: lost weight; now w/a normal BMI. Emiliana Fortune MD [address], [place], [address] , [facility] 4 13:58:41 Patient status finding [id number] Completed 201201/23/2014 RECORDED 06/05/20 13 9:17AM BY STEVEN HINES I, ANNOTATI ON/ADDEN DUM Not Available [facility] 4 13:57:28 Intrinsi c asthma 257965105 Active 2012 RECORDED 05/08/20 13 10:38AM BY EMILIANA IQBAL MD, OFFICE VISIT Not Available [facility] 3 11:09:36 Asthma 356522464 Completed 200901/23/2014 RECORDED 04/24/20 10 9:51AM BY BARD MURPHY MA, ANNOTATI ON/ADDEN DUM Not Available [facility] 4 13:57:28 Screenin g for malignan t neoplasm of breast Completed 201101/23/2014 RECORDED 02/04/20 12 8:41AM BY ANALY WILDER MA, ANNOTATI ON/ADDEN DUM Not Available [facility] 4 13:57:28 Screenin g for malignan t neoplasm of breast Completed 201305/10/2014 RECORDED 10/21/19 14 9:36AM BY LORE VALDEZ, HISTORIC AL SUMMARY Emiliana Fortune MD [address] [address], [place], [address] , [facility] 4 10:41:46 Screenin g for malignan t neoplasm of cervix Completed 201101/23/2014 RECORDED 02/04/20 12 8:41AM BY ANALY WILDER MA, ANNOTATI ON/ADDEN DUM Not Available [facility] 4 13:57:28 Screenin g for malignan t neoplasm of colon Completed 201101/23/2014 RECORDED 02/04/20 12 8:41AM BY ANALY WILDER MA, ANNOTATI ON/ADDEN DUM Not Available [facility] 4 13:57:28 Malaise and fatigue 936762565 Completed 201101/23/2014 RECORDED 02/04/20 12 8:41AM BY ANALY WILDER MA, ANNOTATI ON/ADDEN DUM Not Available [facility] 4 13:57:28 Influenz a vaccine needed [id number] 06 Completed 201201/23/2014 RESOLVED DATE: 06/05/20 13; RECORDED 06/05/20 13 9:17AM BY ANABEL COSBYATI ON/ADDEN DUM Not Available [facility] 4 13:57:28 Adult health examinat ion Completed 201201/23/2014 RECORDED 06/05/20 13 9:17AM BY ANABEL COSBYATI ON/ADDEN DUM Not Available [facility] 4 13:57:28 Headache 73022743 Completed 201101/23/2014 IMPRESSI ON: PT WITH SUSPECTE D TENSION HEADACHE S SECONDAR Y TO INCREASE D STRESS AT HOME. DISCUSSE D ROOT CAUSE OF SXS, ALREADY SEEING THERAPIS T, TRYING TO DO YOGA/REL AXATION MORE. SHE DECLINES PHARMACO THERAPY FOR TIME BEING. WOULD PREFER NOT TAKING MEDS FOR HEADACHE S, HAS SOME INTEREST IN TRIGGER PT TXS. WILL START WITH PT, IF INEFFECT LORAINE MAY THEN REFER TO NEURO FOR INJECTIO NS.; RECORDED 05/05/20 12 8:37AM BY FOSTER WINKLER MA, ANNOTATI ON/ADDEN DUM Not Available [facility] 4 13:57:29 Pure hypercho lesterol emia [id number] Completed 201201/23/2014 RECORDED 06/05/20 13 9:16AM BY ANABEL COSBYATI ON/ADDEN DUM Not Available [facility] 4 13:57:29 Influenz a with respirat ory manifest ation other than pneumoni a Completed 200901/23/2014 RECORDED 04/17/20 10 5:32PM BY WILLIAM LLAMAS, ANABELATI ON/ADDEN DUM Not Available [facility] 4 13:57:29 Shoulder joint pain 029456380 Active 2012 RECORDED 06/05/20 13 9:28AM BY EMILIANA IQBAL MD, OFFICE VISIT. Improved with PT. Not Available [facility] 3 11:09:36 Localize d superfic ial swelling of skin 440793462 Completed 201101/23/2014 RECORDED 02/04/20 12 8:41AM BY ANALY WILDER MA, ANABELATI ON/ADDEN DUM Not Available [facility] 4 13:57:29 Administ ration of bacteria l and viral vaccine Completed 200801/23/2014 RECORDED 04/23/20 09 9:56AM BY CHUY MURPHY, OFFICE VISIT Not Available [facility] 4 13:57:29 Examinat ion for suspecte d mental disorder Completed 201101/23/2014 RECORDED 05/05/20 12 8:38AM BY FOSTER WINKLER MA, ANABELATI ON/ADDEN DUM Not Available [facility] 4 13:57:29 Chronic sinusiti s 73696570 Completed 201101/23/2014 RECORDED 02/04/20 12 8:41AM BY ANALY WILDER MA, ANABELATI ON/ADDEN DUM Not Available [facility] 4 13:57:29 Sprains and strains of joints and adjacent muscles Completed 200901/23/2014 IMPRESSI ON: NORMAL EXAM, NO SIGNS OF INFX OR PALPABLE MASSES. SUSPECT MUSCULAR . RECOMMEN DED REST, INTERMIT TENT HEAT AND USE OF NSAID FOR PAIN. TO CALL OFFICE IF CONTINUE S TO WORSEN OR PERSISTS WITH THE ABOVE TXS.; RECORDED 04/17/20 10 5:32PM BY MICHELLE SEGOVIA ON/ADDEN DUM Not Available [facility] 4 13:57:29 Pain in limb 06815846 Completed 201101/23/2014 IMPRESSI ON: FOLLOWIN G TRAUMA LAST NIGHT. XRAY TO R/O FX, ADVISED RE SX CARE WITH WILTON TAPING, REST, ELEVATIO N, USE OF PRN NSAID. WILL CONTACT PT WITH RESULT WHEN AVAIL.; RECORDED 02/04/20 12 8:41AM BY ANALY WILDER MA, ANNOTATI ON/ADDEN DUM Not Available [facility] 4 13:57:29 Hyperlip idemia 11961021 Active 2016 Not Available [facility] 3 11:09:36 Pain of right shoulder joint 06667586202 909849 Active 2018 Not Available [facility] 3 11:09:36 History of SARS-CoV -2 53485283180 6158548 Active 2021 MIld symptoms Not Available [facility] 3 11:09:36 Closed fracture of right wrist 28582854702 670577 Active 2021 Not Available [facility] 3 11:09:36 Osteopen ia 882904622 Active 2022 Bone density done 11/05/22 Not Available [facility] 3 11:09:36 Contact dermatit is caused by urushiol from [facility] olena 231480158 Active 2022 Not Available [facility] 3 11:09:36 Type 2 diabetes mellitus 72589258 Active 2023 Emiliana Fortune MD [address], [place], [address] , [facility] 4 10:13:45 Notes:10/20/2013: PAP SMEAR - STATUS IS INACTIVE [facility] UP TO DATE; RECORDED 04/24/2010 9:51AM BY BRAD STONE MA, ANNOTATION/ADDENDUM Problem Notes None recorded. Procedures Surgical History Date Name Laterality Status Provider Name and Address Organization Details Recorded Time 10/10/19 25 Cologuard completed Emiliana Fortune MD [address], [place], [address], [facility] 10/22/2024 08:06:29 02/11/20 24 Most Recent Mammogram completed Fawn Alvarado [facility] 02/11/2024 10:19:20 02/08/20 24 diabetic retinopathy screening completed Fawn Alvarado [facility] 02/16/2024 08:22:14 02/10/20 23 Ultrasound breast limited completed Fawn Alvarado [facility] 02/09/2023 15:44:18 02/03/20 23 Mammogram both breasts completed Kati Monterouyen [facility] 02/02/2023 15:42:54 07/21/19 22 Orthopedic Surgery completed Kira Ball MA [facility] 01/06/2023 12:57:53 05/12/20 21 Date of Last Pap Smear completed Bailey Valdez [facility] 06/23/2021 13:39:52 12/08/19 19 Diabetic Foot Exam (Monofilament) completed Steven Guajardo [facility] 12/07/2018 10:24:22 03/03/19 90 Tubal Ligation completed Steven Guajardo [facility] 06/13/2019 09:24:40 03/12/19 86 Dilation and Curettage completed Victor Amandamichela [facility] 06/13/2019 09:24:40 Imaging Results None recorded. Procedure Notes None recorded. Medical Equipment None Reported. Allergies Allergen ID Allergen Name Allergen Category Reaction Reaction Severity Criticality Documentation Date Start Date Code Code System Note Provider Name and Address Organization Details Recorded Time 71293 cat dander environme nt Not available Not available Not available 05/28/2016 31759 UNK Emiliana davenport MD [address] [address], [place], [address] [place] [address] 6 11:25:58 34280 house dust allergeni c extract environme nt,medica tion Not available Not available Not available 05/16/2024 47056 9 RxNorm WILLIAM Andersen, [facility] 4 13:30:52 Medications Name Sig Start Date Stop Date Status Note LastModified by Organization Details LastModified Time prednison e 10 mg tablet PLEASE SEE ATTACHED FOR DETAILED DIRECTIO NS 08/19 completed Not Available Not Available Not Available prednison e 20 mg tablet active Not Available Not Available Not Available Zyrtec 10 mg tablet Take 1 tablet every day by oral route as needed. 08/19 completed Not Available Not Available Not Available triamcino lone acetonide 0.1 % topical cream 05/27 completed Not Available Not Available Not Available butalbita l-acetami nophen-ca ffeine 50 mg-325 mg-40 mg tablet EVERY 4 HOURS NEEDED 04/19 completed RECORDED 05/08/20 13 10:18AM BY EMILIANA IQBAL MD, MEDICATI ON AUTO-BRUNO CTIVATIO N; Not Available Not Available Not Available oxycodone -acetamin ophen 5 mg-325 mg tablet TAKE 1 TO 2 TABLETS BY MOUTH EVERY 6 HOURS NEEDED FOR PAIN 06/30 completed Not Available Not Available Not Available amoxicill in 875 mg tablet TWO TIMES DAILY 07/04 completed RECORDED 07/28/19 12 8:09PM BY MALIK MYERS PA-C, MEDICATI ON AUTO-BRUNO CTIVATIO N; Not Available Not Available Not Available oseltamiv ir 75 mg capsule 2 TIMES A DAY 06/05 completed RECORDED 06/10/20 09 8:30AM BY EMILIANA IQBAL MD, MEDICATI ON AUTO-BRUNO CTIVATIO N; Not Available Not Available Not Available polymyxin B sulfate 10,000 unit-trim ethoprim 1 mg/mL eye drops QID 07/01 completed RECORDED 07/28/19 12 8:09PM BY MALIK MYERS PA-C, MEDICATI ON AUTO-BRUNO CTIVATIO N; Not Available Not Available Not Available Advair Diskus 250 mcg-50 mcg/dose powder for inhalatio n TWO TIMES DAILY 2013 active Not Available Not Available Not Avai lable albuterol sulfate HFA 90 mcg/actua tion aerosol inhaler INHALE 2 PUFFS EVERY DAY BY INHALATI ON ROUTE NEEDED FOR 30 DAYS. active Not Available Not Available No t Available albuterol (refill) 90 mcg/actua tion aerosol inhaler EVERY FOUR HOURS, NEEDED 05/27 completed RECORDED 05/08/20 13 10:39AM BY EMILIANA IQBAL MD, OFFICE VISIT; Not Available Not Available Not Available Symbicort 160 mcg-4.5 mcg/actua tion HFA aerosol inhaler Inhale 1 puff twice a day by inhalati on route. 05/27 completed Not Available Not Available Not Available Calcium 600 + D(3) 600 mg-10 mcg (400 unit) tablet Take 1 tablet every day by oral route. 2022 active Not Available Not Available Not Avai lable Flucelvax Quad (PF) 60 mcg (15 mcg x 4)/0.5 mL IM syringe ADM 0.5ML IM UTD 06/18 completed Not Available Not Available Not Available Flowflex COVID-19 Antigen Home Test kit 06/30 completed Not Available Not Available Not Available Vitals Date Recorded Body height Body mass index (BMI) Body weight Heart rate Oxygen saturation Oxygen saturation in Arterial blood by Pulse oximetry Body temperature Systolic And Diastolic Provider Name and Address Organization Details Last Updated DateTime 4 161.29 cm 28.1 kg/m2 55886.3 7 g 73 /min 93 % 93 % 98.5 [degF] 153/89 mm[Hg] Litzy Moran MA [facility] 4 09:03:54 Date Recorded Body height Body mass index (BMI) Body weight Heart rate Oxygen saturation Oxygen saturation in Arterial blood by Pulse oximetry Body temperature Systolic And Diastolic Provider Name and Address Organization Details Last Updated DateTime 5 161.29 cm 23.4 kg/m2 66663.3 8 g 82 /min 99 % 99 % 97.8 [degF] 112/76 mm[Hg] Litzy Moran MA [facility] 5 10:03:32 Date Recorded Body height Body mass index (BMI) Body weight Heart rate Oxygen saturation Oxygen saturation in Arterial blood by Pulse oximetry Body temperature Systolic And Diastolic Provider Name and Address Organization Details Last Updated DateTime 4 161.29 cm 25.6 kg/m2 57668.0 8 g 64 /min 96 % 96 % 98 [degF] 138/71 mm[Hg] Yennifer Chamorro LPN [facility] 4 08:57:33 Date Recorded Body height Body mass index (BMI) Body weight Heart rate Oxygen saturation Oxygen saturation in Arterial blood by Pulse oximetry Body temperature Systolic And Diastolic Provider Name and Address Organization Details Last Updated DateTime 4 161.29 cm 24.8 kg/m2 80841.1 2 g 73 /min 98 % 98 % 97.9 [degF] 121/75 mm[Hg] Rafaela mai MA [facility] 4 09:32:50 Date Recorded Body height Body mass index (BMI) Body weight Heart rate Oxygen saturation Oxygen saturation in Arterial blood by Pulse oximetry Body temperature Systolic And Diastolic Provider Name and Address Organization Details Last Updated DateTime 4 161.29 cm 23.2 kg/m2 86340.7 9 g 73 /min 98 % 98 % 98.2 [degF] 117/75 mm[Hg] Litzy Moran MA [facility] 4 13:30:32 Social History Question Answer Notes LastModified by Organizat ion Details LastModified Time Tobacco Smoking Status Never Smoker Not Available [facility] 05/14/2020 03:36:35 Do You Have An Advance Directive? No [email or web address] Information not available 08/19/2023 Animal Exposure? Yes Information not available 08/19/2023 Is Blood Transfusion Acceptable In An Emergency? Yes [id number] Information not available 05/14/2020 What Is Your Level Of Caffeine Consumption? Occasional [id number] Information not available 05/14/2020 How Much Tobacco Do You Chew? None [id number] Information not available 05/14/2020 What Type Of Diet Are You Following? REGULAR [id number] Information not available 05/14/2020 Which Illicit Or Recreational Drugs Have You Used? None [id number] Information not available 05/14/2020 Education 2 Year College [email or web address] Information not available 08/19/2023 Have There Been Any Changes To Your Family Or Social Situation? No [email or web address] Information not available 08/19/2023 Are There Any Guns Present In Your Home? No Information not available 08/19/2023 Legally Blind In One Or Both Eyes? No [email or web address] Information not available 08/19/2023 Live Alone Or With Others? With Others [email or web address] Information not available 08/19/2023 Do You Take Precautions To Prevent Distracted Driving? Yes [email or web address] Information not available 05/27/2015 How Often Do You Need To Have Someone Help You When You Read Instructions, Pamphlets, Or Other Written Material From Your Doctor Or Pharmacy? Never Information not available 05/27/2015 Have You Served In The ? No Information not available 05/28/2016 Have You Or Anyone In Your Household Had Any Of The Following Symptoms In The Last 14 Days: Sore Throat, Cough, Chills, Body Aches For Unknown Reasons, Shortness Of Breath For Unknown Reasons, Loss Of Smell, Loss Of Taste, Fever At Or Greater Than 100 Degrees Fahrenheit? No [email or web address] Information not available 06/18/2020 Are You Or Anyone In Your Household A Health Care Provider Or Emergency Responder? No [email or web address] Information not available 06/18/2020 To The Best Of Your Knowledge Have You Been In Close Proximity To Any Individual Who Tested Positive For COVID-19? No [email or web address] Information not available 06/18/2020 Marital Status Informati on not available 08/19/2023 What Was The Date Of Your Most Recent Tobacco Screening? 09/20/2024 Information not available 09/20/2024 How Many Children Do You Have? 3 Sons; 3 Grandsons [email or web address] Information not available 09/20/2024 Do You Use Protection During Sex? No [id number] Information not available 05/14/2020 Difficulty Reading? No [email or web address] Information not available 08/19/2023 What Is Your Relationship Status? [email or web address] Information not available 08/19/2023 Do You Use Your Seat Belt Or Car Seat Routinely? Yes [email or web address] Information not available 06/25/2021 Seat Belts Used Routinely Yes Information not available 08/19/2023 Are You Sexually Active? Yes [id number] Information not available 05/14/2020 Smoke Alarm In Home Yes [email or web address] Information not available 08/19/2023 Do You Have Smoke And Carbon Monoxide Detectors In Your Home? Yes Information not available 06/25/2021 At What Age Did You Start Smoking Tobacco? 1 [id number] Information not available 05/14/2020 Are You Passively Exposed To Smoke? No Information not available 06/25/2021 How Much Tobacco Do You Smoke? No [id number] Information not available 05/14/2020 Do You Use Sunscreen Routinely? Yes [id number] Information not available 05/14/2020 How Many Years Have You Smoked Tobacco? 0 [id number] Information not available 05/14/2020 Do You Have Difficulty Walking Or Climbing Stairs? No [email or web address] Information not available 08/19/2023 Sex: Unknown Functional Status Question Answer Note LastModified by Organizat ion Details LastModified Time Do you use any illicit or recreational drugs? No [email or web address] Information not available 08/19/2023 What is your level of alcohol consumption? None [id number] Information not available 05/14/2020 Do you or have you ever used smokeless tobacco? Never used smokeless tobacco [id number] Information not available 05/14/2020 Are you currently employed? No [id number] Information not available 05/14/2020 Difficulty driving at night? No [email or web address] Information not available 08/19/2023 Are you able to care for yourself? Yes [id number] Information not available 05/14/2020 What is your occupation? [employer] [id number] Information not available 05/14/2020 Do you have difficulty dressing or bathing? No [email or web address] Information not available 08/19/2023 Do you or have you ever used e-cigarettes or vape? Never used electronic cigarettes [email or web address] Information not available 08/19/2023 What is your exercise level? Occasional walking [id number] Information not available 05/14/2020 Mental Status Question Answer Note LastModified by Organization D etails LastModified Time Do you have difficulty concentrating, remembering or making decisions? No [email or web address] Information no t available 08/19/2023 Family History Relationship Description Onset Age of this Age Resolved Age Notes LastModified by Organization Details LastModified Time Mother Disorder of thyroid gland 54 59 [email or web address] Not available 04/13 12:19:55 Mother Depressive disorder 32 59 [email or web address] Not available 04/13 12:19:55 Mother Heart disease 52 59 [email or web address] Not available 04/13 12:19:55 Mother Hypertensive disorder 45 59 [email or web address] Not available 04/13 12:19:55 Mother Hypercholest erolemia 52 59 [email or web address] Not available 04/13 12:19:55 Father Coronary arterioscler osis 73 [email or web address] Not available 2023 09:00:11 Father Heart disease 68 73 [email or web address] Not available 05/27 11:05:46 Maternal Grandmother Alzheimer's disease [email or web address] Not available 05/27 11:08:10 Brother Hypercholest erolemia 50 [email or web address] Not available 2020 09:24:06 Brother Hypertensive disorder 56 [email or web address] Not available 05/27 11:08:10 Notes:1 younger brother Medical History Condition Response Gout N Other N Kidney Stones N Blood Diseases N Hyperthyroidism N Breast Cancer N Hypothyroidism N Lung Disease N Depression N COPD N Defects or Inherited Disease N Anesthesia Complications N Headaches/Migraines Y Anxiety Disorder N Varicose Veins N Obesity N Vision or Eye Problems N Arthritis N Head Injury/Concussion N Infertility N Polyps N Congenital Anomalies N Acid Reflux (GERD) N Cancer N Stroke N ADHD N Endometriosis N High Cholesterol N Liver Disease N Fibromyalgia N Kidney Disease N Heart Problems N Ear or Hearing Problems N Hospitalizations N Thyroid Problems N GI Problems N Acne N Eating Disorder N Skin Problems N Anemia N Constipation N Bladder Problems N Mental Illness N Diabetes N Ovarian Cancer N Blood Transfusions N Seizures/Epilepsy N Tuberculosis N AIDS/HIV N Congestive Heart Failure (CHF) N Eczema N Abuse/Domestic Violence N Diverticulitis N Asthma Y Allergies Y Reflux/GERD N Hepatitis N Pulmonary Embolism N Hypertension N Chicken Pox Y Autism Spectrum Disorder (ASD) N Osteoporosis N Gynecological History Statement/Question Response If Post Menopausal, Age at Menopause 45 Date of Last Colonoscopy Sexually Active? Y STIs/STDs N HPV Vaccine N Date of Last Pap Smear 05/12/2021 Sexual Problems? N Age at Menarche 11 Current Control Method Tubal Ligat ion Most Recent Mammogram 02/11/2024 Age at First Child 28 N Obstetrics History GPAL:G 0 P 0 0 0 0 Immunizations Vaccine Type Date Status Note Provider Arturo montero and Address Organization Details Recorded Time Influenza, split virus, quadrivalent, preservative 0 completed WILLIAM Andersen [facility] - [facility] 08/19/2023 09:04:07 Influenza, adjuvanted, quadrivalent, PF 1 completed Fawn Alvarado null, [facility] 04/27/2023 11:25:41 Influenza, split virus, trivalent, preservative 8 completed Fawn Alvarado null, [facility] 04/27/2023 11:25:42 Tdap 9 completed Fawn Alvarado null, [facility] 04/27/2023 11:25:42 Influenza, split virus, trivalent, preservative 9 completed Fawn Alvarado null, [facility] 04/27/2023 11:25:42 Influenza, split virus, trivalent, preservative 0 completed Fawn Alvarado null, [facility] 04/27/2023 11:25:42 Influenza, split virus, trivalent, preservative 1 completed Fawn Alvarado null, [facility] 04/27/2023 11:25:42 influenza, seasonal, intradermal, preservative free 2 completed Fawn Alvarado null, [facility] 04/27/2023 11:25:42 influenza, seasonal, intradermal, preservative free 3 completed Fawn Avlarado null, [facility] 04/27/2023 11:25:42 COVID-19, mRNA, LNP-S, PF, 30 mcg/0.3 mL dose 1 completed Fawn Alvarado null, [facility] 04/27/2023 11:25:42 Influenza, MDCK, quadrivalent, PF 0 completed Fawn Alvarado null, [facility] 04/27/2023 11:25:41 zoster recombinant 1 completed Fawn Alvarado null, [facility] 04/27/2023 11:25:41 COVID-19, mRNA, LNP-S, PF, 30 mcg/0.3 mL dose 1 completed Fawn Alvarado null, [facility] 04/27/2023 11:25:42 pneumococcal polysaccharide PPV23 1 completed Fawn Alvarado null, [facility] 04/27/2023 11:25:42 Influenza, split virus, quadrivalent, PF 7 completed Fawn Alvarado null, [facility] 04/27/2023 11:25:42 Influenza, split virus, trivalent, PF 4 completed Fawn Alvarado null, [facility] 04/27/2023 11:25:42 Tdap 9 completed Fawn Alvarado null, [facility] 04/27/2023 11:25:42 Pneumococcal conjugate PCV 13 0 completed Fawn Alvarado null, [facility] 04/27/2023 11:25:42 Influenza, split virus, quadrivalent, PF 5 completed Fawn Alvarado null, [facility] 04/27/2023 11:25:42 Influenza, high-dose, quadrivalent, PF 2 completed Fawnconrad Serratonett null, [facility] 04/27/2023 11:25:41 COVID-19, mRNA, LNP-S, bivalent, PF, 50 mcg/0.5 mL or 25mcg/0.25 mL dose 2 completed Fawn Alvarado null, [facility] 04/27/2023 11:25:42 Influenza, split virus, quadrivalent, PF 8 completed Fawn Alvarado null, [facility] 04/27/2023 11:25:42 zoster recombinant 2 completed Fawn Alvarado null, [facility] 04/27/2023 11:25:41 Influenza, split virus, quadrivalent, PF 9 completed Fawn Alvarado null, [facility] [facility] 04/27/2023 11:25:42 COVID-19, mRNA, LNP-S, PF, 100 mcg/0.5mL dose or 50 mcg/0.25mL dose 1 completed Fawn Alvarado null, [facility] 04/27/2023 11:25:41 COVID-19, mRNA, LNP-S, PF, 30 mcg/0.3 mL dose 1 completed Fawn Alvarado null, [facility] 04/27/2023 11:25:41 COVID-19, mRNA, LNP-S, PF, 50 mcg/0.5 mL 3 completed Fawn Alvarado null, [facility] 04/27/2023 11:25:42 influenza, unspecified formulation 3 completed Yennifer Caporale, EXPLOSIVE TECHNICIAN null, [facility] 11/18/2023 08:57:56 Influenza, adjuvanted, quadrivalent, PF 3 completed Yennifer Caporale, EXPLOSIVE TECHNICIAN null, [facility] 11/18/2023 08:57:56 Influenza, split virus, quadrivalent, PF 6 completed Not Available [facility] 07/29/2019 02:22:07 Influenza, high-dose, trivalent, PF 4 completed Emiliana Fortune MD [address], [address], [facility] 05/16/2024 16:44:01 Past Encounters Encounter ID Performer Location Encounter Start Date Encounter Closed Date Diagnosis/Indication Diagnosis SNOMED-CT Code Diagnosis ICD10 Code Diagnosis Note [id number] autoEComm erce [address] [facility] [place] [address] 12/21/2007 00:00:00 [id number] autoEComm erce [address] [facility] [address] [place] [address] 04/23/2009 00:00:00 [id number] autoEComm erce [address] [facility], [address] [place] [address] 05/31/2009 00:00:00 [id number] [address] [place] [address] 06/11/2009 00:00:00 [id number] autoEComm erce [address] [address] [place] [address] 06/26/2009 00:00:00 [id number] autoEComm erce [address] [address] [place] [address] 04/24/2010 00:00:00 [id number] autoEComm erce [address] [facility] [address] [place] [address] 03/05/2011 00:00:00 [id number] autoEComm erce [address] [facility] [address] [place] [address] 04/27/2011 00:00:00 [id number] autoEComm erce [address] [facility] [address] [place] [address] 06/24/2011 00:00:00 [id number] autoEComm erce [address] [facility] [address] [place] [address] 02/04/2012 00:00:00 [id number] autoEComm erce [address] [facility] [address] [place] [address] 05/05/2012 00:00:00 [id number] autoEComm erce [address] [facility] [address] [place] [address] 05/08/2013 00:00:00 [id number] autoEComm erce [address] [facility] [address] [place] [address] 06/05/2013 00:00:00 [id number] Emiliana Fortune MD Main Office [address] [facility] [address], [place] [address] 05/10/2014 10:06:25 05/10/2014 11:07:20 Needs influenza immunization 657446409 Adult heal th examination 942617719 Body mass index 25-29 - overweight 100075232 Intrinsic asthma 852015650 [id number] Emiliana Fortune MD Main Office [address] [place] [address] 05/27/2015 10:55:56 05/27/2015 11:54:30 Adult health examination 938069317 Z00.00 She is UTD with mammogram and PAP smears. She refuses a colonoscop y but will do the stool cards. Shingles vaccine recommende d. Needs infl uenza immunization 784883484 Z23 Intrinsic asthma 0858989 08 J45.909 Varicella vaccination 68 232537 Z23 [id number] Emiliana Fortnue MD Main Office [address] [address] [place] [address] 05/28/2016 10:47:08 05/28/2016 11:50:16 Adult health examination 881533363 Z00.00 She is UTD with mammogram and PAP smears. She refuses a colonoscop y but will do the stool cards. Shingles vaccine recommende d. Intrinsic asthma 9074943 08 J45.909 Usually set off by URI's. Needs infl uenza immunization 392612422 Z23 Varicella vaccination 68 994626 Z23 [id number] Emiliana Fortune MD Main Office [address] [address] [place] [address] 05/31/2017 12:52:06 05/31/2017 13:37:31 Adult health examination 383983536 Z00.00 We discussed a shingles shot and she will get this at the pharmacy. We also discussed colon cancer screening and she refuses a colonoscop y but will do the cologuard. Needs infl uenza immunization 962385710 Z23 Hyperlipidemia 41556730 E78.5 Screening for malignant neoplasm of colon 078417563 Z12.11 Z12.12 She refuses a colonoscop y. [id number] Emiliana Fortune MD Main Office [address] [address] [place] [address] 06/08/2018 09:28:27 06/08/2018 10:25:56 Adult health examination 487278772 Z00.00 We discussed a shingles shot and she will get this at the pharmacy. UTD with colon cancer screening. Had a negative cologuard and due again May 2020. Needs infl uenza immunization 010365504 Z23 Varicella vaccination 68 131862 Z23 Hyperglycemia 98314031 R 73.9 Type 2 jerry betes mellitus without complication 978478673 E11.9 A1C is 6.3. We discussed mgmt and will see her back in 6 months. Hypertriglyceridemia 302 604499 E78.1 Discussed ways to reduce this. We will recheck in 6 months and add meds at that time if it is still elevated. Plantar fasciitis 20280211 003 M72.2 left foot. [id number] Emiliana Fortune MD Main Office [address] [address] 12/07/2018 10:10:05 12/07/2018 10:52:32 Type 2 diabetes mellitus 57099707 E11.9 She has reduced her carb and sugared drink intake and her A1C has come down to normal. Hyperlipidemia 51219108 E78.5 [id number] Emiliana Fortune MD Main Office [address] [place] [address] 06/13/2019 09:15:54 06/13/2019 10:09:55 Adult health examination 512618456 Z00.00 We discussed a shingles shot and she will get this at the pharmacy. UTD with colon cancer screening. Had a negative cologuard and due again May 2021 Intrinsic asthma 7769357 08 J45.909 Usually set off by URI's. Administra tion of viral vaccine 26030366 Z23 Needs infl uenza immunization 544366740 Z23 Hyperlipidemia 57809782 E78.5 Varicella vaccination 68 177868 Z23 Pain of ri ght shoulder joint 9923327248 4349141 M25.511 H/o frozen shoulder. Gave handout with exercises to do at home and she will call for PT referral if it worsens. [id number] Emiliana Fortune MD Main Office [address] [address] 06/18/2020 09:33:07 06/18/2020 10:05:45 Adult health examination 833704521 Z00.00 We discussed a shingles shot and she will get this at the pharmacy. UTD with colon cancer screening. Had a negative cologuard and due again May 2021 Administra tion of pneumococcal vaccine 20806862 Z23 [id number] Emiliana Fortune MD Main Office [address] [facility] [address] [place] [address] 06/25/2021 09:23:20 06/25/2021 10:35:04 Adult health examination 868997209 Z00.00 UTD with COVID and scheduled for her booster. Received one shingles vaccine and due for her second. Will give her second pneumonia vaccine. Had a negative cologuard in 2018 and due again now. Discussed cardiac risk factors. Administra tion of pneumococcal vaccine 09593404 Z23 Screening for malignant neoplasm of colon 925158468 Z12.11 Z12.12 Had a negative cologuard in 2018. Hyperglycemia 07950915 R 73.9 Hyperlipidemia 15781622 E78.5 Her 10-year risk is 7.6%. She will work on lifestyle changes. [id number] Emiliana Fortune MD Main Office [address] [facility] [address] [place] [place] [address] 06/30/2022 10:53:54 06/30/2022 11:48:09 Adult health examination 539991941 Z00.00 UTD with COVID including the bivalent booster. Also UTD with flu, pneumonia and shingles vaccines. Had a negative cologuard July 2021 and due again in 2024. Discussed cardiac risk factors. Bone density finding 385 953048 M85.89 She will schedule her own appointmen t. History of SARS-CoV-2 29 03860836 95071617 Z86.16 MIld symptoms Closed fra cture of right wrist 3368227306 9117677 S62.91XA Had surgery done by Dr Washington at . Hyperlipidemia 80416511 E78.5 Running high but chose to work on lifestyle factors. [id number] Rhonda Reed MD Main Office [address] [facility] [address] [place] [address] 01/06/2023 12:53:55 01/06/2023 13:34:32 Contact dermatitis caused by urushiol from [place] poison olena 486239343 L25.5 Contact dermatitis from Poison [place] in her garden. Begin Prednisone taper therapy. Rec that patient continue OTC cream and Benadryl. [id number] Emiliana Fortune MD Main Office [address] [address] [place] [address] 01/21/2023 13:55:35 01/21/2023 14:29:31 Contact dermatitis caused by urushiol from [place] poison olena 745096020 L25.5 ? rebound as she denies re-exposur e. will re-start prednisone taper x 14 days, may continue hydrocorti sone or calamine, zyrtec as needed for itching. [id number] Emiliana Fortune MD Main Office [address] [address] [place] [address] 08/19/2023 08:58:29 08/19/2023 09:44:08 Adult health examination 956767321 Z00.00 UTD with COVID including the bivalent booster. Also UTD with flu, pneumonia and shingles vaccines. Had a negative cologuard July 2021 and due again in 2024. Discussed cardiac risk factors. Hyperlipidemia 53864217 E78.5 Running high in the past. Recheck fasting lipids. Elevated blood-pressure reading without diagnosis of hypertension 890290201 R03.0 She will follow her blood pressures at home and will return for a check in 3 months. Intrinsic asthma 7214529 08 J45.909 Usually set off by URI's. She has not had a problem for years. [id number] Emiliana Fortune MD Main Office [address] [address] [place] [address] 11/18/2023 08:47:59 11/18/2023 09:38:35 Type 2 diabetes mellitus 11087525 E11.9 She has reduced her carb and sugared drink intake and her A1C has come down to normal. Intrinsic asthma 7539448 08 J45.909 Usually set off by URI's. She has not had a problem for years. Elevated blood-pressure reading without diagnosis of hypertension 241809273 R03.0 Blood pressure in the pre-hypert ensive range. Discussed management of cardiovasc ular risks and strategies to control BP. Left bundl e branch block 21856962 I44.7 She will call if she develops symptoms. [id number] Emiliana Fortune MD Main Office [address] [address] [place] [address] 12/16/2023 09:23:06 12/16/2023 10:00:15 Type 2 diabetes mellitus 53262332 E11.9 She has reduced her carb and sugared drink intake and her A1C has come down to normal. Will follow twice yearly for now. Hyperlipidemia 33703204 E78.5 Running high in the past. Recheck fasting lipids. [id number] Emiliana Fortune MD Main Office [address] [address] [place] [address] 05/16/2024 13:23:58 05/16/2024 13:54:25 Type 2 diabetes mellitus 30727585 E11.9 She has reduced her carb and sugared drink intake and her A1C has come down to normal. Will follow twice yearly for now. Influenza vaccine needed 0470321382 106 Z23 65 YEARS AND OLDER [id number] Emiliana Fortune MD Main Office [address] [address] [place] [address] 09/20/2024 09:54:52 09/20/2024 10:38:44 Adult health examination 862863713 Z00.00 UTD with COVID including the bivalent booster.Al so UTD with flu, pneumonia and shingles vaccines.H ad a negative cologuard July 2021 and due again this year.Discu ssed cardiac risk factors.Cherry s osteopenia and due for another bone density; taking calcium w/vitamin D Hyperlipidemia 45561704 E78.5 Running high in the past. Recheck fasting lipids. Intrinsic asthma 0620898 08 J45.909 Usually set off by URI's. She has not had a problem for years. Osteopenia 925797603 M85 .80 Taking calcium w/vitamin D; she will make her own appointmen t. Type 2 jerry betes mellitus 46384227 E11.9 She has reduced her carb and sugared drink intake and her A1C has come down to normal. Will follow twice yearly for now. She also lost 27 lbs over the last year. Bone density finding 385 970545 M85.89 She will schedule her own appointmen t. Screening for malignant neoplasm of colon 670905203 Z12.11 Z12.12 Had a negative cologuard in 2021 and due again this year. Health Concerns Section Related Observation LastModified by Organization Detai ls LastModified Time None Recorded Concern Status LastModified by Organization Details LastModified Time None Recorded Advance Directives Directive N: Payers Insurance Date Sequence Insurance Name Policy Number Policy Waite Covered Member ID Waite Member ID Guarantor Name 09/27/2024 1 [facility] (MEDICARE REPLACEMENT/ ADVANTAGE - PPO) [id number] Lizbet Montero Tanika [id number] Lizbet Montero Tanika 11/17/2023 1 [employer] [id number] Layton Valdez [place] [id number] Lizbet Montero Tanika Notes Date Note Type Note Provider Name and Address Organization Details Recorded Time 08/19/19 24 text/htm l Generic HPI TemplateReported bypatient.Notes:She has been well.Cologuard negative in July 2021 and due again in 1 year.UTD with immunizations including COVID, tetanus, flu, pneumonia and shingles.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 Emiliana Fortune MD [address], [address], [facility] 08/19/2023 10:49:15 11/18/19 24 text/htm l She has high blood pressure here in the office but she checks this at home at says that the systolic is lower than 130 more than 75% of the time. Denies CP/pressure or SOB.Her A1C was elevated to 7.0 last appointment and she has adjusted her diet and increased her activity level in order to get this under control w/o taking meds.She has a h/o asthma but this has not been a problem for a while. She needs another inhaler since her current inhaler is old. Emiliana Fortune MD [address] [address], [place], [address], [facility] [place] 11/18/2023 12:45:44 12/16/19 24 text/htm l Diabetes F/UReported bypatient.Context:normal range of home blood sugars (in the low 100s); checking feet regularly Associated Symptoms:no weight gain; no weight loss; no dizziness; no sweats; no headaches; no confusion; no increased thirst; no increased appetite (she had an increased appetite but this has resolved with her lower sugars.); no increased urination; no blurred vision; no numbness of feet; no calluses on feetHyperlipidemiaReported bypatient.Type of hyperlipidemia:combined Duration:chronic Current Therapy:last cholesterol level: (261); last triglyceride level: (544); last HDL level: (35); last non HDL level: (226) Compliance:compliant with diet Complications:no coronary artery disease; no peripheral artery disease; no cardiovascular disease Risk Factors:diabetesNotes:Currentl y not taking any meds. Emiliana Fortune MD [address], [address], [facility] 12/16/2023 10:03:22 05/16/20 24 text/htm l Diabetes F/UReported bypatient.Context:checking feet regularly; not on meds; able to control this with dietary changes and weight loss Associated Symptoms:no dizziness; no headaches; no increased thirst; no increased appetite; no increased urination; no blurred vision; no numbness of feet; no calluses on feet;weight loss (29 lbs)(in the last 9 months)Notes:She had an A1C of 7.0 in August 2023 (9 months ago) and has made a concerted effort to get her sugars under control w/o meds. She was able to lose weight and adjust her diet and her A1C today is normal at 5.1. We will continue to follow this every 6 months for now. 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 Medicare Annual Wellness VisitReported bypatient.Diet and Nutrition:healthy diet; discussed diet improvement Fracture Risk:no history of fractures Physical Activity:good physical condition;does not exercise on a regular basis Depression Risk:never feels sad, empty, or tearful; no loss of interest in activities; no sleep disturbances or insomnia; no loss of energy; no history of depression; no history of mood disorders;significant changes in weight(lost 27 lbs intentionally over the last year) Orientation:no disorientation to time; no disorientation to date; no disorientation to place Concentration and Memory:no decreased concentrating ability; no memory lapses or loss; does not forget words Speech/Motor difficulties:no speech difficulties; no difficulty expressing formulated concepts; no difficulty with fine manipulative tasks; no difficulty writing/copying; no slowed reaction time; does not knock things over when trying to pick them up Hearing:no loss of hearing Vision:no vision problems Activities of Daily Living:able to bathe with limited or no assistance; able to contol urination and bowels; able to dress with limited or no assistance; able to feed self with limited or no assistance; able to get out of chair or bed with limited or no assistance; able to groom with limited or no assistance; able to toilet with limited or no assistance Instrumental Activities of Daily Living:able to do house work with limited or no assistance; able to grocery shop with limited or no assistance; able to manage medications with limited or no assistance; able to manage money with limited or no assistance; able to prepare meals with limited or no assistance; able to use the phone with limited or no assistance Falls Risk Assessment:no frequent falls while walking Emiliana Fortune MD [address], [address], [facility] 09/20/2024 11:59:54 OBGyn Episode No OBEpisode recorded.
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
== END 2025-01-18 14:46 | disposition home or self-care (01) ==
LOC: HO.HOS 14:11
PROVIDERS: PCP Internal Medicine; Visit Provider Physician Assistant
DX: S52.124A Nondisplaced fracture of head of right radius, initial encounter for closed fracture (principal)
CPT/HCPCS: 99213; G2211

== ENCOUNTER → 2025-01-18 14:12 | Outpatient (BNV) | payer MEDICARE, SELFPAY | PROVIDERS: Visit Provider Radiology Diagnostic Radiology | DX: S52.121A Displaced fracture of head of right radius, initial encounter for closed fracture (principal); M25.421 Effusion, right elbow | CPT/HCPCS: 73080 ==

== ENCOUNTER 2025-02-21 08:26 | Outpatient (AMB) | payer MEDICARE, SELFPAY ==
--- NOTE | 2025-02-21 08:36 | A.OFFVIS_ITS ---
Vital Signs 02/21/25 08:40 Height 5 ft 7 in Weight 135 lb BMI 21.1 Intake Visit Reasons: OV- RT elbow Closed fx of radial head DOI: 01/10/25 Intake Note: Lizbet is a 69 year old right hand dominant female who presents today for a follow up of right radial head fracture, DOI: 01/10/25. Patient reports she is doing well and feels she is getting better. She complains of mild sensitivity and soreness with overuse. Allergies No Known Allergies Allergy (Verified 02/21/25 08:40) Medication List - Last Reconciled 02/21/25 by Carmel Christensen PA-C albuterol sulfate 90 mcg/actuation (ProAir HFA) 2 puffs inhalation Q4-6H PRN calcium carbonate (Antacid (calcium carbonate)) 215 mg PO BID HPI HPI OV- RT elbow Closed fx of radial head DOI: 01/10/25: Details: 69-year-old female returns to the office today for a follow-up of her right radial head fracture date of injury 01/10/2025. The patient states she has been performing most activities without significant limitations. She has some discomfort along the elbow but not over the fracture site. 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 No tenderness over the radial head. She has mild discomfort over the medial epicondyle. No pain with resisted wrist flexion or extension. She has full range of motion of the elbow without pain. Neurovascularly intact. Results Reviewed Results Reviewed: X-rays of the right elbow obtained in the office today and reviewed by me show stable radial head fracture. Assessment & Plan Assessment & Plan (1) Closed fracture of radial head: Code(s): S52.123A - Displaced fracture of head of unspecified radius, initial encounter for closed fracture Category: Medical Qualifiers: Encounter type: subsequent encounter Fracture alignment: nondisplaced Laterality: right Fracture healing: with routine healing Qualified Code(s): S52.124D - Nondisplaced fracture of head of right radius, subsequent encounter for closed fracture with routine healing Plan: Patient will continue with activities as tolerated. She can slowly increase the weight that she lifts as long as she is pain-free. I did offer a course of occupational therapy and she would like to perform this on her own. I would like to see her back in 8 weeks with x-rays, sooner if needed. Orders: Orders XR elbow RT min 3V Today M25.521 - Pain in right elbow Coding Level of Care Code Global (21693) Diagnoses Closed nondisplaced fracture of head of right radius with routine healing, subsequent encounter S52.124D Encounter type: subsequent encounter Fracture alignment: nondisplaced Laterality: right Fracture healing: with routine healing
[2025-02-21 08:40] VITALS: BMI 21.1
== END 2025-02-21 08:50 | disposition home or self-care (01) ==
LOC: HO.HOS 08:27
PROVIDERS: PCP Internal Medicine; Visit Provider Physician Assistant
DX: S52.124D Nondisplaced fracture of head of right radius, subsequent encounter for closed fracture with routine healing (principal)
CPT/HCPCS: 99213

== ENCOUNTER → 2025-02-21 08:28 | Outpatient (BNV) | payer MEDICARE, SELFPAY | PROVIDERS: Visit Provider Radiology Diagnostic Radiology | DX: S52.121K Displaced fracture of head of right radius, subsequent encounter for closed fracture with nonunion (principal) | CPT/HCPCS: 73080 ==

== ENCOUNTER 2025-02-21 08:46 | Outpatient (REF) | payer MEDICARE, SELFPAY ==
--- NOTE | ~2025-02-21 | XR_ITS ---
EXAMINATION: XR ELBOW 3 VIEWS RIGHT HISTORY: M25.521 - Pain in right elbow COMPARISON: Comparison is made with the prior examination dated 01/18/2025. FINDINGS: Three views of the right elbow are submitted. Osseous mineralization is normal. Again seen is a minimally depressed fracture of the radial head. The joint spaces are preserved. The soft tissues are unremarkable. XR/XR elbow RT min 3V IMPRESSION: Minimally displaced fracture of the radial head without change. Electronically signed by: Philipp English MD 02/21/2025 08:47 AM EDT
== END 2025-02-21 08:47 | disposition home or self-care (01) ==
LOC: HO.HOSX 08:46
PROVIDERS: Visit Provider Physician Assistant
DX: S52.124D Nondisplaced fracture of head of right radius, subsequent encounter for closed fracture with routine healing (principal); M25.521 Pain in right elbow; X58.XXXD Exposure to other specified factors, subsequent encounter
CPT/HCPCS: 73080; 99212

== ENCOUNTER 2025-04-18 08:05 | Outpatient (REF) | payer MEDICARE, SELFPAY ==
--- NOTE | ~2025-04-18 | XR_ITS ---
EXAMINATION: XR ELBOW, RIGHT CLINICAL INFORMATION: M25.521 - Pain in right elbow COMPARISON: None available. TECHNIQUE: AP, lateral, and oblique views of the right elbow. FINDINGS: Bone mineralization is normal. Redemonstrated mildly depressed intra-articular fracture of the radial head, stable in position/alignment. Fracture plane is ill-defined. Joint spaces are maintained. No new acute fracture. No significant effusion. Soft tissues appear unremarkable. XR/XR elbow RT min 3V IMPRESSION: Stable alignment of the intra-articular radial head fracture. Ill-definition of the fracture plane. Electronically signed by: Kyaw Strange MD 04/18/2025 11:55 AM EDT
== END 2025-04-18 08:06 | disposition home or self-care (01) ==
LOC: HO.HOSX 08:05
PROVIDERS: Visit Provider Physician Assistant
DX: S52.121D Displaced fracture of head of right radius, subsequent encounter for closed fracture with routine healing (principal); X58.XXXD Exposure to other specified factors, subsequent encounter
CPT/HCPCS: 73080; 99212

== ENCOUNTER 2025-04-18 11:17 | Outpatient (AMB) | payer MEDICARE, SELFPAY ==
--- NOTE | 2025-04-18 11:33 | A.OFFVIS_ITS ---
Intake Visit Reasons: OV- RT elbow fracture, DOI 01/10/25 Intake Note: Lizbet is a 69 year old right hand dominant female who presents today for a follow up of right radial head fracture, DOI: 01/10/25. At her last visit she was offered occupational therapy however she preferred to do at home exercises at home. She was recommended to follow up in 8 weeks with x-rays. Today patient reports she is doing well, states not really any pain or discomfort unless she over uses her arm. Allergies No Known Allergies Allergy (Verified 04/18/25 11:34) HPI HPI OV- RT elbow fracture, DOI 01/10/25: Details: 70-year-old female returns to the office today for a follow-up right elbow for radial head fracture date of injury 01/10/2025. Patient is doing well. She has been working on home exercises and denies pain or limitations with daily activities. 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 No tenderness over the radial head or other areas of the elbow. No pain with resisted wrist flexion or extension. She has full range of motion of the elbow without pain. She is able to supinate and pronate without pain.. Neurovascularly intact. Results Reviewed Results Reviewed: X-rays of the right elbow obtained in the office today and reviewed by me show stable radial head fracture with interval healing Assessment & Plan Assessment & Plan (1) Fracture of distal end of right radius: Code(s): S52.501A - Unspecified fracture of the lower end of right radius, initial encounter for closed fracture Category: Medical Plan: The patient can continue to increase activities as tolerated. She will continue to work on range of motion and strength on her own as she is been successful to this point. There is any concerns going forward she will contact our office otherwise follow up as needed. Orders: Orders XR elbow RT min 3V 04/18/25 M25.521 - Pain in right elbow Coding Level of Care Code Global (37944) Diagnoses Fracture of distal end of right radius S52.501A
== END 2025-04-18 11:54 | disposition home or self-care (01) ==
LOC: HO.HOS 11:18
PROVIDERS: Visit Provider Physician Assistant
DX: S52.121D Displaced fracture of head of right radius, subsequent encounter for closed fracture with routine healing (principal); Z48.89 Encounter for other specified surgical aftercare
CPT/HCPCS: 99213

== ENCOUNTER → 2025-04-18 11:27 | Outpatient (BNV) | payer MEDICARE, SELFPAY | PROVIDERS: Visit Provider Radiology Diagnostic Ultrasound | DX: M25.521 Pain in right elbow (principal) | CPT/HCPCS: 73080 ==